=== PATIENT | male | born 1960 | race African-American/Black ===

== ENCOUNTER 2017-04-11 11:44 | Inpatient (IN) | payer OTHER ==
[2017-04-11 13:06] VITALS: BMI 29.1
--- NOTE | 2017-04-11 17:43 | HP ---
COWS - Scale Resting Pulse: 0= [place] 80 or Below Sweatin=Flushed/Facial Moisture Restless Observation: 3= Extraneous Movement Pupil Size: 2= Moderately Dilated Bone or Joint Aches: 2= Severe Diffuse Aches Runny Nose/ Eye Tearin= Runny Nose/Eyes GI Upset > 30mins: 3= Vomiting/Diarrhea Tremor Observation: 2= Slight Tremor Visible Yawning Observation: 2= >3x During Session Anxiety or Irritability: 2=Irritable/Anxious Goose Flesh Skin: 0=Smooth Skin COWS Score: 20 Admission ROS BHS - HPI Chief Complaint: i need help to stop using heroin Allergies/Adverse Reactions: Allergies Allergy/AdvReac Type Severity Reaction Status Date / Time No Known Allergies Allergy Verified 04/11/17 17:37 History of Present Illness: this 56 years old male with heroin dependence,seeking help for detox,last detox [address] [facility] coronary disease,arthritis several admissions in detox relapsing longest priod of sobriety 10 years Exam Limitations: No Limitations - Ebola screening Have you been sick,other than usual withdrawal symptoms: No - Review of Systems Constitutional: Chills, Diaphoresis, Loss of Appetite, Malaise, Night Sweats, Changes in sleep, Weakness EENT: reports: Tearing, Nose Congestion Respiratory: reports: No Symptoms reported Cardiac: reports: Palpitations GI: reports: Diarrhea, Nausea, Vomiting, Abdominal cramping : reports: No Symptoms Reported Musculoskeletal: reports: Back Pain, Joint Pain, Muscle Pain, Neck Pain, Joint Stiffness Integumentary: reports: Dryness Neuro: reports: Headache, Tremors Endocrine: reports: No Symptoms Reported Hematology: reports: No Symptoms Reported Psychiatric: reports: No Sypmtoms Reported, Judgement Intact, Mood/Affect Appropiate, Orientated x3, Anxious, Depressed Patient History - Patient Medical History Hx Anemia: No Hx Asthma: No Hx Chronic Obstructive Pulmonary Disease (COPD): No Hx Cancer: No Hx Cardiac Disorders: No Hx Congestive Heart Failure: No Hx Hypertension: Yes (on med) Hx Hypercholesterolemia: Yes (on med) Hx Pacemaker: No HX Cerebrovascular Accident: No Hx Seizures: No Hx Dementia: No Hx Diabetes: No Hx Gastrointestinal Disorders: No Hx Liver Disease: No Hx Genitourinary Disorders: No Hx Sexually Transmitted Disorders: No Hx Renal Disease (ESRD): No Hx Thyroid Disease: No (last 09/15 negative) Hx Hepatitis C: No Hx Depression: Yes (anxiety) Hx Suicide Attempt: No Hx Bipolar Disorder: No Hx Schizophrenia: No Other Medical History: no suicidal,no homiidal - Patient Surgical History Past Surgical History: No - PPD History Previous Implant?: Yes Documented Results: Negative w/o proof Implanted On Prior [facility] Admission?: No PPD to be Administered?: Yes - Smoking Cessation Smoking history: Current every day smoker Have you smoked in the past 12 months: Yes Aproximately how many cigarettes per day: 2 Hx Chewing Tobacco Use: No Initiated information on smoking cessation: Yes 'Breaking Loose' booklet given: 04/11/17 - Substance & Tx. History Hx Alcohol Use: No Hx Substance Use: No Substance Use Type: Heroin Hx Substance Use Treatment: Yes (2015) - Substances Abused Heroin Route: Injection Frequency: Daily Amount used: 5 bags Age of first use: 17 Date of Last Use: 04/10/17 Family Disease History - Family Disease History Family Disease History: Other: Father (alcohol,), Mother (alcohol, ) Admission Physical Exam [facility] - Vital Signs Vital Signs: Vital Signs - 24 hr 04/11/17 13:03 Temperature 98.2 F Pulse Rate 73 Respiratory 18 Rate Blood Pressure 132/85 - Physical General Appearance: Yes: Moderate Distress, Tremorous, Irritable, Sweating, Anxious HEENTM: Yes: Hearing grossly Normal, Normal ENT Inspection, Normocephalic, [place] , Pharynx Normal Respiratory: Yes: Lungs Clear, Normal Breath Sounds, No Respiratory Distress Neck: Yes: Within Normal Limits, Supple, Trachea in good position Breast: Yes: Within Normal Limits Cardiology: Yes: Within Normal Limits, Regular Rhythm, Regular Rate, S1, S2 Abdominal: Yes: Within Normal Limits, Normal Bowel Sounds, Non Tender, Flat, Soft Genitourinary: Yes: Within Normal Limits Back: Yes: Within Normal Limits, Normal Inspection Musculoskeletal: Yes: full range of Motion, Back pain, Joint Stiffness, Muscle Pain Extremities: Yes: Normal Inspection, Normal Range of Motion, Tremors Neurological: Yes: knife changer II-XII NML intact, Fully Oriented, Alert, Motor Strength 5/5 Integumentary: Yes: Dry Lymphatic: Yes: Within Normal Limits - Diagnostic (1) Opioid dependence with withdrawal Current Visit: Yes Status: Acute (2) Hypertension Current Visit: Yes Status: Acute (3) Coronary artery disease Current Visit: Yes Status: Acute (4) Hypercholesterolemia Current Visit: Yes Status: Acute (5) Arthritis Current Visit: Yes Status: Acute (6) Anxiety and depression Current Visit: Yes Status: Acute (7) Nicotine dependence Current Visit: Yes Status: Acute Cleared for Admission S - Detox or Rehab [facility] Level of Care: Medically Managed Detox Regimen/Protocol: Methadone S Breath Alcohol Content Breath Alcohol Content: 0 Urine Drug Screen - Results Drug Screen Negative: No Urine Drug Screen Results: OPI-Opiates
[2017-04-11] MEDS ORDERED: MENTHOL/PHENOL 1 EACH UD MM PRN (17:54)
[2017-04-11] MEDS ORDERED: hydrOXYzine PAMOATE 50 MG CAPSULE (FP) PO PRN (17:54)
[2017-04-11] MEDS ORDERED: MAGNESIUM HYDROX 2400MG/30ML ORAL SUSPENSION 30 ML CUP PO PRN (17:54)
[2017-04-11] MEDS ORDERED: MAGNESIUM CITRATE 300 ML BOTTLE PO PRN (17:54)
[2017-04-11] MEDS ORDERED: guaiFENesin/D-METHORPHAN HB 10 ML UNIT-DOSE CUPS PO PRN (17:54)
[2017-04-11] MEDS ORDERED: MAG HYDROX/AL HYDROX/SIMETH 30 ML UNIT-DOSE CUP PO PRN (17:54)
[2017-04-11] MEDS ORDERED: P-EPHED 60MG/TRIPROLIDI 2.5MG TABLET PO PRN (17:54)
[2017-04-11] MEDS ORDERED: ACETAMINOPHEN 325 MG TABLET (FP) PO PRN (17:54)
[2017-04-11] MEDS ORDERED: METHADONE HCL 10 MG TABLET (FOR DETOX USE ONLY) PO ONE ×2 (18:30→23:00)
[2017-04-11] MEDS: diazePAM 5 MG TABLET PO PRN (18:52)
[2017-04-11 21:10] LABS: URINE APPEARANCE CLEAR; URINE BILIRUBIN NEGATIVE (NEGATIVE); URINE BLOOD NEGATIVE (NEGATIVE); URINE COLOR DKYELLOW; URINE GLUCOSE (UA) NEGATIVE (NEGATIVE); URINE KETONE 1+ (NEGATIVE); URINE LEUK ESTERASE NEGATIVE (NEGATIVE); URINE NITRITE NEGATIVE (NEGATIVE); URINE UROBILINOGEN NEGATIVE E.U./dl (0.2-1.0)
[2017-04-11 21:15] LABS: URINE PROTEIN 1+ (NEGATIVE)
[2017-04-11 21:19] LABS: URINE HYALINE CAST 2 /lpf; URINE MUCUS MANY; URINE RBC 8 /hpf (0-3); URINE WBC 1 /hpf (3-5)
[2017-04-11] MEDS: THIAMINE HCL 100 MG TABLET (FP) PO SCH (22:32)
[2017-04-11] MEDS: ATORVASTATIN CA 40 MG TABLET (FP) PO SCH (22:32)
[2017-04-11] MEDS: diphenhydrAMINE HCL 50 MG CAPSULE PO PRN (22:33)
[2017-04-12] MEDS: diazePAM 5 MG TABLET PO PRN ×3 (05:34→22:22)
[2017-04-12] MEDS: IBUPROFEN 400 MG TABLET (FP) PO PRN (06:09)
[2017-04-12] MEDS ORDERED: METHADONE HCL 10 MG TABLET (FOR DETOX USE ONLY) PO ONE (10:00)
[2017-04-12 10:06] LABS: MCH 28.2 pg (25.7-33.7); MCHC 32.3 g/dl (32.0-35.9); MEAN CELL VOLUME 87.6 fl (80-96); MEAN PLT VOLUME 7.9 fl (7.5-11.1); PLATELET COUNT 307 K/MM3 (134-434); RDW 13.1 % (11.9-15.9); WHITE BLOOD COUNT 5.4 K/mm3 (4.0-10.0)
[2017-04-12] MEDS: LISINOPRIL 5 MG TABLET (FP) PO SCH (10:24)
[2017-04-12] MEDS: ASPIRIN 81 MG CHEWABLE TABLETS PO SCH (10:24)
[2017-04-12] MEDS: PRENATAL VITAMINS W/ FOLIC ACID TABLET (FP) PO SCH (10:24)
[2017-04-12 10:29] LABS: ALBUMIN 3.9 g/dl (3.4-5.0); ALK PHOS 76 U/L (45-117); ANION GAP 9 (8-16); BILIRUBIN,TOTAL 0.6 mg/dL (0.2-1.0); CALCIUM 9.3 mg/dL (8.5-10.1); CO2 27 mmol/L (21-32); COCKROFT - GAULT 83.18; CREATININE 1.1 mg/dL (0.7-1.3); GLUCOSE,RANDOM 114 mg/dL (74-106); SGOT/AST 26 U/L (15-37); SGPT/ALT 40 U/L (12-78); TOT PROT 7.5 g/dl (6.4-8.2)
--- NOTE | 2017-04-12 10:39 | PN ---
[facility] CIWA - CIWA Score Nausea/Vomitin-No Nausea/No Vomiting Muscle Tremors: 4-Moderate,w/Arms Extend Anxiety: 4-Mod. Anxious/Guarded Agitation: 4-Moderately Restless Paroxysmal Sweats: 1-Minimal Palms Moist Orientation: 0-Oriented Tacttile Disturbances: 3-Moderate Itch/Numb/Burn Auditory Disturbances: 0-None Visual Disturbances: 0-None Headache: 0-None Present CIWA-Ar Total Score: 16 BHS Progress Note (SOAP) Subjective: ANXIETY,SWEATS,JOINT PAIN-HX ARTHRITIS Objective: 04/12/17 10:38 Vital Signs Temperature 98.9 F 04/12/17 09:30 Pulse Rate 90 04/12/17 09:30 Respiratory Rate 20 04/12/17 09:30 Blood Pressure 117/71 04/12/17 09:30 O2 Sat by Pulse Oximetry (%) Laboratory Last Values WBC 5.4 K/mm3 (4.0-10.0) 04/12/17 06:00 RBC 4.62 M/mm3 (4.00-5.60) 04/12/17 06:00 Hgb 13.0 GM/dL (11.7-16.9) 04/12/17 06:00 Hct 40.4 % (35.4-49) 04/12/17 06:00 MCV 87.6 fl (80-96) 04/12/17 06:00 MCHC 32.3 g/dl (32.0-35.9) 04/12/17 06:00 RDW 13.1 % (11.9-15.9) 04/12/17 06:00 Plt Count 307 K/MM3 (134-434) 04/12/17 06:00 MPV 7.9 fl (7.5-11.1) 04/12/17 06:00 Sodium 143 mmol/L (136-145) 04/12/17 06:00 Potassium 4.4 mmol/L (3.5-5.1) 04/12/17 06:00 Chloride 107 mmol/L (98-107) 04/12/17 06:00 Carbon Dioxide 27 mmol/L (21-32) 04/12/17 06:00 Anion Gap 9 (8-16) 04/12/17 06:00 BUN 14 mg/dL (7-18) 04/12/17 06:00 Creatinine 1.1 mg/dL (0.7-1.3) 04/12/17 06:00 Creat Clearance w eGFR > 60 (>60) 04/12/17 06:00 Random Glucose 114 mg/dL (74-106) H 04/12/17 06:00 Calcium 9.3 mg/dL (8.5-10.1) 04/12/17 06:00 Total Bilirubin 0.6 mg/dL (0.2-1.0) 04/12/17 06:00 AST 26 U/L (15-37) 04/12/17 06:00 ALT 40 U/L (12-78) 04/12/17 06:00 Alkaline Phosphatase 76 U/L (45-117) 04/12/17 06:00 Total Protein 7.5 g/dl (6.4-8.2) 04/12/17 06:00 Albumin 3.9 g/dl (3.4-5.0) 04/12/17 06:00 Urine Color Dkyellow 04/11/17 20:45 Urine Appearance Clear 04/11/17 20:45 Urine pH 5.0 (5.0-8.0) 04/11/17 20:45 Ur Specific [place] >= 1.030 (1.005-1.025) H 04/11/17 20:45 Urine Protein 1+ (NEGATIVE) H 04/11/17 20:45 Urine Glucose (UA) Negative (NEGATIVE) 04/11/17 20:45 Urine Ketones 1+ (NEGATIVE) H 04/11/17 20:45 Urine Blood Negative (NEGATIVE) 04/11/17 20:45 Urine Nitrite Negative (NEGATIVE) 04/11/17 20:45 Urine Bilirubin Negative (NEGATIVE) 04/11/17 20:45 Urine Urobilinogen Negative E.U./dl (0.2-1.0) 04/11/17 20:45 Ur Leukocyte Esterase Negative (NEGATIVE) 04/11/17 20:45 Urine RBC 8 /hpf (0-3) 04/11/17 20:45 Urine WBC 1 /hpf (3-5) 04/11/17 20:45 Ur Epithelial Cells Rare /hpf (FEW) 04/11/17 20:45 Hyaline Casts 2 /lpf 04/11/17 20:45 Urine Mucus Many 04/11/17 20:45 Assessment: 04/12/17 10:38 WITHDRAWAL SX Plan: CONTINUE DETOX
--- NOTE | 2017-04-12 10:59 | EKG ---
Test Reason : Blood Pressure : / mmHG Vent. Rate : 099 BPM Atrial Rate : 099 BPM P-R Int : 154 ms QRS Dur : 066 ms QT Int : 354 ms P-R-T Axes : 062 049 247 degrees QTc Int : 454 ms NORMAL SINUS RHYTHM POSSIBLE LEFT ATRIAL ENLARGEMENT LEFT VENTRICULAR HYPERTROPHY MARKED ST ABNORMALITY, POSSIBLE INFERIOR SUBENDOCARDIAL INJURY ABNORMAL ECG NO PREVIOUS ECGS AVAILABLE Confirmed by HAILEE DICKSON MD ([id number]) on 04/12/2017 10:58:57 AM Referred By: Confirmed By:HAILEE DICKSON MD
[2017-04-12 12:40] LABS: SICKLE CELL SCREEN NEGATIVE (NEGATIVE)
--- NOTE | 2017-04-12 13:10 | CONSULT ---
[facility] Psychiatric Consult - Data Date of interview: 04/12/17 Admission source: [facility] Identifying data: First admission to [facility] for this 56 y/o AA male seeking detox treatment for heroin dependence.Patient is single (common-law),a father of two,homeless,unemployed and supported on SSI benefits. Substance Abuse History: - Smoking Cessation. Smoking history: Current every day smoker. Have you smoked in the past 12 months: Yes. Aproximately how many cigarettes per day: 2. Hx Chewing Tobacco Use: No. Initiated information on smoking cessation: Yes. 'Breaking Loose' booklet given: 04/11/17. - Substance & Tx. History. Hx Alcohol Use: No. Hx Substance Use: No. Substance Use Type: Heroin. Hx Substance Use Treatment: Yes (2015). - Substances Abused. Heroin. Route: Injection. Frequency: Daily. Amount used: 5 bags. Age of first use: 17. Date of Last Use: 04/10/17. Confirmed by patient. Medical History: Hypertension,hypercholesterolemia and arthritis. Psychiatric History: No reported history of psychiatric hospitalizations.Diagnosed with MDD and followed in OPD setting in [facility] at the [facility] (self-report).Mr Chery denies history of suicide attempts.He requests trazodone to address chronic insomnia. Physical/Sexual Abuse/Trauma History: Patient denies. Additional Comment: Urine Drug Screen Results: OPI-Opiates.Noted. Mental Status Exam - Mental Status Exam Alert and Oriented to: Time, Place Cognitive Function: Good Patient Appearance: Well Groomed Mood: Hopeful, Euthymic Affect: Appropriate, Normal Range Patient Behavior: Fatigued, Appropriate, Cooperative Speech Pattern: Clear, Appropriate Voice Loudness: Normal Thought Process: Goal Oriented Thought Disorder: Not Present Hallucinations: Denies Suicidal Ideation: Denies Homicidal Ideation: Denies Insight/Judgement: Poor Sleep: Poorly, Difficulty falling asleep Appetite: Good Muscle strength/Tone: Normal Gait/Station: Normal Psychiatric Findings - Problem List ([place] 1, 2,3) (1) Opioid dependence with withdrawal Current Visit: Yes Status: Acute (2) Substance induced mood disorder Current Visit: Yes Status: Acute (3) Benzodiazepine dependence Current Visit: Yes Status: Acute (4) Nicotine dependence Current Visit: Yes Status: Acute (5) Arthritis Current Visit: Yes Status: Chronic (6) Coronary artery disease Current Visit: Yes Status: Chronic (7) Hypercholesterolemia Current Visit: Yes Status: Chronic (8) Hypertension Current Visit: Yes Status: Chronic (9) Insomnia Current Visit: Yes Status: Acute - Initial Treatment Plan Initial Treatment Plan: Psychoeducation.Detoxification.Trazodone 50 mg po hs.Ordered at patient's request.Side effects/benefits discussed with the patient.Made aware of risk for priapism.Patient agrees with this plan.Observation.
[2017-04-12] MEDS: ATORVASTATIN CA 40 MG TABLET (FP) PO SCH (22:21)
[2017-04-12] MEDS: traZODone HCL 50 MG TABLET (FP) PO SCH (22:21)
[2017-04-12] MEDS: THIAMINE HCL 100 MG TABLET (FP) PO SCH (22:21)
[2017-04-13] MEDS: IBUPROFEN 400 MG TABLET (FP) PO PRN (06:06)
[2017-04-13] MEDS: diazePAM 5 MG TABLET PO PRN ×4 (06:07→22:25)
[2017-04-13] MEDS ORDERED: METHADONE HCL 5 MG TABLET (FOR DETOX USE ONLY) PO ONE (10:00)
[2017-04-13] MEDS: PRENATAL VITAMINS W/ FOLIC ACID TABLET (FP) PO SCH (10:15)
[2017-04-13] MEDS: LISINOPRIL 5 MG TABLET (FP) PO SCH (10:15)
[2017-04-13] MEDS: ASPIRIN 81 MG CHEWABLE TABLETS PO SCH (10:15)
--- NOTE | 2017-04-13 11:01 | PN ---
[facility] CIWA - CIWA Score Nausea/Vomitin-No Nausea/No Vomiting Muscle Tremors: 4-Moderate,w/Arms Extend Anxiety: 4-Mod. Anxious/Guarded Agitation: 4-Moderately Restless Paroxysmal Sweats: 1-Minimal Palms Moist Orientation: 0-Oriented Tacttile Disturbances: 3-Moderate Itch/Numb/Burn Auditory Disturbances: 0-None Visual Disturbances: 0-None Headache: 0-None Present CIWA-Ar Total Score: 16 BHS Progress Note (SOAP) Subjective: ANXIETY,SWEATS,RIGHT LEG AND HIP PAIN. Objective: 04/13/17 11:00 Vital Signs Temperature 98.2 F 04/13/17 09:22 Pulse Rate 74 04/13/17 09:22 Respiratory Rate 18 04/13/17 09:22 Blood Pressure 131/85 04/13/17 09:22 O2 Sat by Pulse Oximetry (%) Laboratory Last Values WBC 5.4 K/mm3 (4.0-10.0) 04/12/17 06:00 RBC 4.62 M/mm3 (4.00-5.60) 04/12/17 06:00 Hgb 13.0 GM/dL (11.7-16.9) 04/12/17 06:00 Hct 40.4 % (35.4-49) 04/12/17 06:00 MCV 87.6 fl (80-96) 04/12/17 06:00 MCHC 32.3 g/dl (32.0-35.9) 04/12/17 06:00 RDW 13.1 % (11.9-15.9) 04/12/17 06:00 Plt Count 307 K/MM3 (134-434) 04/12/17 06:00 MPV 7.9 fl (7.5-11.1) 04/12/17 06:00 Sickle Cell Screen Negative (NEGATIVE) 04/12/17 06:00 Sodium 143 mmol/L (136-145) 04/12/17 06:00 Potassium 4.4 mmol/L (3.5-5.1) 04/12/17 06:00 Chloride 107 mmol/L (98-107) 04/12/17 06:00 Carbon Dioxide 27 mmol/L (21-32) 04/12/17 06:00 Anion Gap 9 (8-16) 04/12/17 06:00 BUN 14 mg/dL (7-18) 04/12/17 06:00 Creatinine 1.1 mg/dL (0.7-1.3) 04/12/17 06:00 Creat Clearance w eGFR > 60 (>60) 04/12/17 06:00 Random Glucose 114 mg/dL (74-106) H 04/12/17 06:00 Calcium 9.3 mg/dL (8.5-10.1) 04/12/17 06:00 Total Bilirubin 0.6 mg/dL (0.2-1.0) 04/12/17 06:00 AST 26 U/L (15-37) 04/12/17 06:00 ALT 40 U/L (12-78) 04/12/17 06:00 Alkaline Phosphatase 76 U/L (45-117) 04/12/17 06:00 Total Protein 7.5 g/dl (6.4-8.2) 04/12/17 06:00 Albumin 3.9 g/dl (3.4-5.0) 04/12/17 06:00 Urine Color Dkyellow 04/11/17 20:45 Urine Appearance Clear 04/11/17 20:45 Urine pH 5.0 (5.0-8.0) 04/11/17 20:45 Ur Specific [place] >= 1.030 (1.005-1.025) H 04/11/17 20:45 Urine Protein 1+ (NEGATIVE) H 04/11/17 20:45 Urine Glucose (UA) Negative (NEGATIVE) 04/11/17 20:45 Urine Ketones 1+ (NEGATIVE) H 04/11/17 20:45 Urine Blood Negative (NEGATIVE) 04/11/17 20:45 Urine Nitrite Negative (NEGATIVE) 04/11/17 20:45 Urine Bilirubin Negative (NEGATIVE) 04/11/17 20:45 Urine Urobilinogen Negative E.U./dl (0.2-1.0) 04/11/17 20:45 Ur Leukocyte Esterase Negative (NEGATIVE) 04/11/17 20:45 Urine RBC 8 /hpf (0-3) 04/11/17 20:45 Urine WBC 1 /hpf (3-5) 04/11/17 20:45 Ur Epithelial Cells Rare /hpf (FEW) 04/11/17 20:45 Hyaline Casts 2 /lpf 04/11/17 20:45 Urine Mucus Many 04/11/17 20:45 RPR Titer Nonreactive (NONREACTIVE) 04/12/17 06:00 Assessment: 04/13/17 11:00 WITHDRAWAL SX Plan: CONTINUE DETOX MOTRIN DIRECTED
[2017-04-13] MEDS: ATORVASTATIN CA 40 MG TABLET (FP) PO SCH (22:25)
[2017-04-13] MEDS: traZODone HCL 50 MG TABLET (FP) PO SCH (22:25)
[2017-04-13] MEDS: THIAMINE HCL 100 MG TABLET (FP) PO SCH (22:25)
[2017-04-14] MEDS: IBUPROFEN 400 MG TABLET (FP) PO PRN (05:58)
[2017-04-14] MEDS: diazePAM 5 MG TABLET PO PRN ×3 (05:59→16:54)
[2017-04-14] MEDS ORDERED: METHADONE HCL 5 MG TABLET (FOR DETOX USE ONLY) PO ONE (10:00)
[2017-04-14] MEDS: ASPIRIN 81 MG CHEWABLE TABLETS PO SCH (10:30)
[2017-04-14] MEDS: PRENATAL VITAMINS W/ FOLIC ACID TABLET (FP) PO SCH (10:30)
[2017-04-14] MEDS: LISINOPRIL 5 MG TABLET (FP) PO SCH (10:31)
--- NOTE | 2017-04-14 12:12 | PN ---
S Progress Note (SOAP) Subjective: DECREASED ANXIETY,SWEATS,TREMORS. CHRONIC BACK AND LEFT LEG PAIN. Objective: 04/14/17 12:12 Vital Signs Temperature 97.1 F L 04/14/17 09:17 Pulse Rate 82 04/14/17 09:17 Respiratory Rate 18 04/14/17 09:17 Blood Pressure 116/72 04/14/17 09:17 O2 Sat by Pulse Oximetry (%) Laboratory Last Values WBC 5.4 K/mm3 (4.0-10.0) 04/12/17 06:00 RBC 4.62 M/mm3 (4.00-5.60) 04/12/17 06:00 Hgb 13.0 GM/dL (11.7-16.9) 04/12/17 06:00 Hct 40.4 % (35.4-49) 04/12/17 06:00 MCV 87.6 fl (80-96) 04/12/17 06:00 MCHC 32.3 g/dl (32.0-35.9) 04/12/17 06:00 RDW 13.1 % (11.9-15.9) 04/12/17 06:00 Plt Count 307 K/MM3 (134-434) 04/12/17 06:00 MPV 7.9 fl (7.5-11.1) 04/12/17 06:00 Sickle Cell Screen Negative (NEGATIVE) 04/12/17 06:00 Sodium 143 mmol/L (136-145) 04/12/17 06:00 Potassium 4.4 mmol/L (3.5-5.1) 04/12/17 06:00 Chloride 107 mmol/L (98-107) 04/12/17 06:00 Carbon Dioxide 27 mmol/L (21-32) 04/12/17 06:00 Anion Gap 9 (8-16) 04/12/17 06:00 BUN 14 mg/dL (7-18) 04/12/17 06:00 Creatinine 1.1 mg/dL (0.7-1.3) 04/12/17 06:00 Creat Clearance w eGFR > 60 (>60) 04/12/17 06:00 Random Glucose 114 mg/dL (74-106) H 04/12/17 06:00 Calcium 9.3 mg/dL (8.5-10.1) 04/12/17 06:00 Total Bilirubin 0.6 mg/dL (0.2-1.0) 04/12/17 06:00 AST 26 U/L (15-37) 04/12/17 06:00 ALT 40 U/L (12-78) 04/12/17 06:00 Alkaline Phosphatase 76 U/L (45-117) 04/12/17 06:00 Total Protein 7.5 g/dl (6.4-8.2) 04/12/17 06:00 Albumin 3.9 g/dl (3.4-5.0) 04/12/17 06:00 Urine Color Dkyellow 04/11/17 20:45 Urine Appearance Clear 04/11/17 20:45 Urine pH 5.0 (5.0-8.0) 04/11/17 20:45 Ur Specific [place] >= 1.030 (1.005-1.025) H 04/11/17 20:45 Urine Protein 1+ (NEGATIVE) H 04/11/17 20:45 Urine Glucose (UA) Negative (NEGATIVE) 04/11/17 20:45 Urine Ketones 1+ (NEGATIVE) H 04/11/17 20:45 Urine Blood Negative (NEGATIVE) 04/11/17 20:45 Urine Nitrite Negative (NEGATIVE) 04/11/17 20:45 Urine Bilirubin Negative (NEGATIVE) 04/11/17 20:45 Urine Urobilinogen Negative E.U./dl (0.2-1.0) 04/11/17 20:45 Ur Leukocyte Esterase Negative (NEGATIVE) 04/11/17 20:45 Urine RBC 8 /hpf (0-3) 04/11/17 20:45 Urine WBC 1 /hpf (3-5) 04/11/17 20:45 Ur Epithelial Cells Rare /hpf (FEW) 04/11/17 20:45 Hyaline Casts 2 /lpf 04/11/17 20:45 Urine Mucus Many 04/11/17 20:45 RPR Titer Nonreactive (NONREACTIVE) 04/12/17 06:00 Assessment: 04/14/17 12:12 WITHDRAWAL SX Plan: CONTINUE DETOX
[2017-04-14] MEDS: THIAMINE HCL 100 MG TABLET (FP) PO SCH (22:19)
[2017-04-14] MEDS: traZODone HCL 50 MG TABLET (FP) PO SCH (22:19)
[2017-04-14] MEDS: ATORVASTATIN CA 40 MG TABLET (FP) PO SCH (22:19)
[2017-04-15] MEDS: IBUPROFEN 400 MG TABLET (FP) PO PRN (05:47)
[2017-04-15] MEDS: LOPERAMIDE HCL 2 MG CAPSULE PO PRN (05:47)
[2017-04-15] MEDS ORDERED: METHADONE HCL 10 MG TABLET (FOR DETOX USE ONLY) PO ONE (10:00)
[2017-04-15] MEDS: PRENATAL VITAMINS W/ FOLIC ACID TABLET (FP) PO SCH (10:31)
[2017-04-15] MEDS: ASPIRIN 81 MG CHEWABLE TABLETS PO SCH (10:31)
[2017-04-15] MEDS: LISINOPRIL 5 MG TABLET (FP) PO SCH (10:31)
--- NOTE | 2017-04-15 10:56 | PN ---
BHS Progress Note (SOAP) Subjective: RESTING IN BED AT ROUNDS WITH DECREASED ANXIETY, TREMORS. Objective: 04/15/17 10:56 Vital Signs Temperature 97.1 F L 04/15/17 09:56 Pulse Rate 75 04/15/17 09:56 Respiratory Rate 20 04/15/17 09:56 Blood Pressure 116/86 04/15/17 09:56 O2 Sat by Pulse Oximetry (%) Assessment: 04/15/17 10:56 DECREASED WITHDRAWAL SX Plan: CONTINUE DETOX
[2017-04-15] MEDS: ATORVASTATIN CA 40 MG TABLET (FP) PO SCH (21:11)
[2017-04-15] MEDS: diphenhydrAMINE HCL 50 MG CAPSULE PO PRN (21:11)
[2017-04-15] MEDS: traZODone HCL 50 MG TABLET (FP) PO SCH (21:11)
[2017-04-15] MEDS: THIAMINE HCL 100 MG TABLET (FP) PO SCH (21:13)
[2017-04-16] MEDS: LOPERAMIDE HCL 2 MG CAPSULE PO PRN ×2 (01:36→10:53)
[2017-04-16] MEDS ORDERED: METHADONE HCL 5 MG TABLET (FOR DETOX USE ONLY) PO ONE (06:00)
[2017-04-16] MEDS: IBUPROFEN 400 MG TABLET (FP) PO PRN (06:14)
[2017-04-16] MEDS: PRENATAL VITAMINS W/ FOLIC ACID TABLET (FP) PO SCH (10:21)
[2017-04-16] MEDS: ASPIRIN 81 MG CHEWABLE TABLETS PO SCH (10:21)
[2017-04-16] MEDS: LISINOPRIL 5 MG TABLET (FP) PO SCH (10:25)
[2017-04-16 10:27] VITALS: BP 121/74; PULSE 87; TEMP 97.6
--- NOTE | 2017-04-16 15:22 | DS ---
[facility] Detox Discharge Summary Admission Date: 04/11/17 Discharge Date: 04/16/17 - History Present History: Alcohol Dependence, Sedative Dependence Additional Comments: ADVISED PATIENT TO FOLLOW-UP WITH QUALITY DIRECTOR AFTER DISCHARGE FROM DETOX FOR GENERAL MEDICAL ASSESSMENT. Pertinent Past History: Hypercholesterolemia, HTN, Depression, Arthritis, CAD. - Physical Exam Results Vital Signs: Vital Signs Temperature 97.6 F 04/16/17 10:26 Pulse Rate 87 04/16/17 10:26 Respiratory Rate 18 04/16/17 10:26 Blood Pressure 121/74 04/16/17 10:26 O2 Sat by Pulse Oximetry (%) Pertinent Admission Physical Exam Findings: WITHDRAWAL SYMPTOMS. Laboratory Tests 04/11/17 04/12/17 04/12/17 20:45 06:00 06:00 WBC 5.4 RBC 4.62 Hgb 13.0 Hct 40.4 MCV 87.6 MCHC 32.3 RDW 13.1 Plt Count 307 MPV 7.9 Sickle Cell Screen Negative Sodium 143 Potassium 4.4 Chloride 107 Carbon Dioxide 27 Anion Gap 9 BUN 14 Creatinine 1.1 Creat Clearance w eGFR > 60 Random Glucose 114 H Calcium 9.3 Total Bilirubin 0.6 AST 26 ALT 40 Alkaline Phosphatase 76 Total Protein 7.5 Albumin 3.9 Urine Color Dkyellow Urine Appearance Clear Urine pH 5.0 Ur Specific [place] >= 1.030 H Urine Protein 1+ H Urine Glucose (UA) Negative Urine Ketones 1+ H Urine Blood Negative Urine Nitrite Negative Urine Bilirubin Negative Urine Urobilinogen Negative Ur Leukocyte Esterase Negative Urine RBC 8 Urine WBC 1 Ur Epithelial Cells Rare Hyaline Casts 2 Urine Mucus Many RPR Titer 04/12/17 06:00 WBC RBC Hgb Hct MCV MCHC RDW Plt Count MPV Sickle Cell Screen Sodium Potassium Chloride Carbon Dioxide Anion Gap BUN Creatinine Creat Clearance w eGFR Random Glucose Calcium Total Bilirubin AST ALT Alkaline Phosphatase Total Protein Albumin Urine Color Urine Appearance Urine pH Ur Specific [place] Urine Protein Urine Glucose (UA) Urine Ketones Urine Blood Urine Nitrite Urine Bilirubin Urine Urobilinogen Ur Leukocyte Esterase Urine RBC Urine WBC Ur Epithelial Cells Hyaline Casts Urine Mucus RPR Titer Nonreactive LABS NOTED. - Treatment Hospital Course: Detox Protocol Followed, Detoxed Safely, Responded well, Discharged Condition Good Patient has Accepted a Rehab Referral to: PATIENT GOING HOME AT THIS TIME. WILL PURSUE REHAB ADMISSION AT LATER DATE. - Medication Discharge Medications: Ambulatory Orders Aspirin [ASA -] 81 mg PO DAILY 04/11/17 Atorvastatin Ca [Lipitor] 80 mg PO HS 04/11/17 Ibuprofen [Motrin -] 400 mg PO Q4H PRN 04/11/17 Lisinopril 5 mg PO DAILY 04/11/17 Trazodone HCl [Desyrel -] 50 mg PO HS #30 tablet 04/12/17 - Diagnosis (1) Anxiety and depression Status: Chronic (2) Insomnia Status: Acute Qualifiers: Insomnia type: unspecified Qualified Code(s): G47.00 - Insomnia, unspecified (3) Nicotine dependence Status: Chronic Qualifiers: Nicotine product type: cigarettes Substance use status: uncomplicated Qualified Code(s): F17.210 - Nicotine dependence, cigarettes, uncomplicated (4) Opioid dependence with withdrawal Status: Acute (5) Substance induced mood disorder Status: Acute (6) Arthritis Status: Chronic (7) Coronary artery disease Status: Chronic Qualifiers: Coronary Disease-Associated Artery/Lesion type: unspecified vessel or lesion type [place] vs. transplanted heart: unspecified whether [place] or transplanted heart Associated angina: angina presence unspecified Qualified Code(s): I25.10 - Atherosclerotic heart disease of [place] coronary artery without angina pectoris (8) Hypercholesterolemia Status: Chronic (9) Hypertension Status: Chronic Qualifiers: Hypertension type: essential hypertension Qualified Code(s): I10 - Essential (primary) hypertension (10) Benzodiazepine dependence Status: Acute - AMA Did Patient Leave Against Medical Advice: No
== END 2017-04-16 10:53 | disposition home or self-care (01) | DRG 773 ==
LOC: YASAS 11:44 → Y3N 18:04
PROVIDERS: ADMIT Internal Medicine; ATTEND Internal Medicine
PROC: HZ2ZZZZ Detoxification Services for Substance Abuse Treatment (ICD-10-PCS; principal; 2017-04-11)
DX: F11.23 Opioid dependence with withdrawal (principal); F13.20 Sedative, hypnotic or anxiolytic dependence, uncomplicated; F17.210 Nicotine dependence, cigarettes, uncomplicated; F41.8 Other specified anxiety disorders; F19.24 Other psychoactive substance dependence with psychoactive substance-induced mood disorder; G47.00 Insomnia, unspecified; M19.90 Unspecified osteoarthritis, unspecified site; I25.10 Atherosclerotic heart disease of native coronary artery without angina pectoris; I10 Essential (primary) hypertension; E78.00 Pure hypercholesterolemia, unspecified; Z59.0 Homelessness
CPT/HCPCS: 36415; 80053; 81003; 81015; 85027; 85660; 86593; 93005; 93010

== ENCOUNTER 2017-06-14 13:54 | Inpatient (IN) | payer OTHER ==
[2017-06-14 15:18] VITALS: BMI 27.3
--- NOTE | 2017-06-14 16:18 | HP ---
COWS - Scale Resting Pulse: 0= [place] 80 or Below Sweatin=Flushed/Facial Moisture Restless Observation: 3= Extraneous Movement Pupil Size: 2= Moderately Dilated Bone or Joint Aches: 2= Severe Diffuse Aches Runny Nose/ Eye Tearin= Runny Nose/Eyes GI Upset > 30mins: 3= Vomiting/Diarrhea Tremor Observation: 2= Slight Tremor Visible Yawning Observation: 2= >3x During Session Anxiety or Irritability: 2=Irritable/Anxious Goose Flesh Skin: 0=Smooth Skin COWS Score: 20 Admission ROS S - HPI Chief Complaint: i am here for detox from heroin Allergies/Adverse Reactions: Allergies Allergy/AdvReac Type Severity Reaction Status Date / Time No Known Allergies Allergy Verified 06/14/17 15:59 History of Present Illness: this 56 years old male with heroin dependence,seeking detox,last treatment [facility] 04/16 multiple medical problem old [place] in 03/16,hypercholesterolemia,hypertension,low back pain herniated disc longest period of sobriety 2 years Exam Limitations: No Limitations - Ebola screening Have you traveled outside of the country in the last 21 days: No Have you had contact with anyone from an Ebola affected area: No Have you been sick,other than usual withdrawal symptoms: No Do you have a fever: No - Review of Systems Constitutional: Chills, Diaphoresis, Loss of Appetite, Malaise, Night Sweats, Changes in sleep, Weakness, Unintentional Wgt. Loss EENT: reports: Tearing, Nose Congestion Respiratory: reports: No Symptoms reported Cardiac: reports: No Symptoms Reported GI: reports: Diarrhea, Nausea, Vomiting, Abdominal cramping : reports: No Symptoms Reported Musculoskeletal: reports: Back Pain, Joint Pain, Muscle Pain Integumentary: reports: Dryness Neuro: reports: Headache, Tremors Endocrine: reports: No Symptoms Reported Hematology: reports: No Symptoms Reported Psychiatric: reports: Depressed Patient History - Patient Medical History Hx Anemia: No Hx Asthma: No Hx Chronic Obstructive Pulmonary Disease (COPD): No Hx Cancer: No Hx Cardiac Disorders: Yes (old mi in 03/16) Hx Congestive Heart Failure: No Hx Hypertension: Yes (0n med) Hx Hypercholesterolemia: Yes (on med) Hx Pacemaker: No HX Cerebrovascular Accident: No Hx Seizures: No Hx Dementia: No Hx Diabetes: No Hx Gastrointestinal Disorders: No Hx Liver Disease: No Hx Genitourinary Disorders: No Hx Sexually Transmitted Disorders: No Hx Renal Disease (ESRD): No Hx Thyroid Disease: No Hx Human Immunodeficiency Virus (HIV): No (last tested 12/17) Hx Hepatitis C: No Hx Depression: Yes Hx Suicide Attempt: No Hx Bipolar Disorder: No Hx Schizophrenia: No Other Medical History: no suicidal,no homicidal - Patient Surgical History Past Surgical History: No - PPD History Previous Implant?: Yes Documented Results: Negative w/proof Implanted On Prior [facility] Admission?: Yes Date: 04/13/17 Results: 0 MM PPD to be Administered?: No - Smoking Cessation Smoking history: Current every day smoker Have you smoked in the past 12 months: Yes Aproximately how many cigarettes per day: 3 Hx Chewing Tobacco Use: No Initiated information on smoking cessation: Yes 'Breaking Loose' booklet given: 06/14/17 - Substance & Tx. History Hx Alcohol Use: No Hx Substance Use: Yes Substance Use Type: Heroin Hx Substance Use Treatment: Yes (last [facility] 04/16) - Substances Abused Heroin Route: Inhalation Frequency: Daily Amount used: 3 BAGS Age of first use: 26 Date of Last Use: 06/13/17 Family Disease History - Family Disease History Family Disease History: Other: Father (alcohol,), Mother (alcohol, ) Admission Physical Exam S - Vital Signs Vital Signs: Vital Signs - 24 hr 06/14/17 15:16 Temperature 98.0 F Pulse Rate 61 Respiratory 18 Rate Blood Pressure 148/86 - Physical General Appearance: Yes: Moderate Distress, Tremorous, Irritable, Sweating, Anxious HEENTM: Yes: Normal ENT Inspection, [place], Pharynx Normal Respiratory: Yes: Lungs Clear, Normal Breath Sounds, No Respiratory Distress Neck: Yes: Within Normal Limits, No masses,lesions,Nodules, Supple Breast: Yes: Within Normal Limits Cardiology: Yes: Within Normal Limits, Regular Rhythm, Regular Rate, S1, S2 Abdominal: Yes: Within Normal Limits, Normal Bowel Sounds, Non Tender, Flat, Soft Genitourinary: Yes: Within Normal Limits Back: Yes: Muscle Spasm Musculoskeletal: Yes: full range of Motion, Back pain, Muscle Pain Extremities: Yes: Tremors Neurological: Yes: director learning 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 transplanted heart: unspecified whether [place] or transplanted heart Associated angina: angina presence unspecified Qualified Code(s): I25.10 - Atherosclerotic heart disease of [place] coronary artery without angina pectoris (4) Hypercholesterolemia Current Visit: No Status: Chronic (5) Hypertension Current Visit: No Status: Chronic Qualifiers: Hypertension type: essential hypertension Qualified Code(s): I10 - Essential (primary) hypertension (6) Nicotine dependence Current Visit: No Status: Chronic Qualifiers: Nicotine product type: cigarettes Substance use status: uncomplicated Qualified Code(s): F17.210 - Nicotine dependence, cigarettes, uncomplicated (7) [place] (myocardial infarction) Current Visit: Yes Status: Acute (8) Low back pain Current Visit: Yes Status: Acute (9) Herniated disc Current Visit: Yes Status: Acute Cleared for Admission [facility] - Detox or Rehab [facility] Level of Care: Medically Managed Detox Regimen/Protocol: Methadone [facility] Breath Alcohol Content Breath Alcohol Content: 0 Urine Drug Screen - Results Drug Screen Negative: No Urine Drug Screen Results: OPI-Opiates
[2017-06-14] MEDS ORDERED: MAGNESIUM CITRATE 300 ML BOTTLE PO PRN (16:27)
[2017-06-14] MEDS ORDERED: hydrOXYzine PAMOATE 25 MG CAPSULE (FP) PO PRN (16:27)
[2017-06-14] MEDS ORDERED: ACETAMINOPHEN 325 MG TABLET (FP) PO PRN (16:27)
[2017-06-14] MEDS ORDERED: guaiFENesin/D-METHORPHAN HB 10 ML UNIT-DOSE CUPS PO PRN (16:27)
[2017-06-14] MEDS ORDERED: P-EPHED 60MG/TRIPROLIDI 2.5MG TABLET PO PRN (16:27)
[2017-06-14] MEDS ORDERED: LOPERAMIDE HCL 2 MG CAPSULE PO PRN (16:27)
[2017-06-14] MEDS ORDERED: MAGNESIUM HYDROX 2400MG/30ML ORAL SUSPENSION 30 ML CUP PO PRN (16:27)
[2017-06-14] MEDS ORDERED: MENTHOL/PHENOL 1 EACH UD MM PRN (16:27)
[2017-06-14] MEDS ORDERED: MAG HYDROX/AL HYDROX/SIMETH 30 ML UNIT-DOSE CUP PO PRN (16:27)
[2017-06-14] MEDS ORDERED: METHADONE HCL 10 MG TABLET (FOR DETOX USE ONLY) PO ONE ×2 (17:30→23:00)
[2017-06-14] MEDS: diazePAM 5 MG TABLET PO PRN ×2 (18:55→22:24)
[2017-06-14] MEDS: ATORVASTATIN CA 40 MG TABLET (FP) PO SCH (22:24)
[2017-06-14] MEDS: THIAMINE HCL 100 MG TABLET (FP) PO SCH (22:24)
[2017-06-14] MEDS: diphenhydrAMINE HCL 50 MG CAPSULE PO PRN (22:24)
[2017-06-14 23:17] LABS: URINE APPEARANCE SLCLOUDY; URINE BILIRUBIN NEGATIVE (NEGATIVE); URINE BLOOD 1+ (NEGATIVE); URINE COLOR YELLOW; URINE GLUCOSE (UA) NEGATIVE (NEGATIVE); URINE KETONE NEGATIVE (NEGATIVE); URINE LEUK ESTERASE NEGATIVE (NEGATIVE); URINE NITRITE NEGATIVE (NEGATIVE); URINE UROBILINOGEN NEGATIVE mg/dL (0.2-1.0)
[2017-06-14 23:28] LABS: URINE PROTEIN 1+ (NEGATIVE)
[2017-06-14 23:57] LABS: CALCIUM OXALATE CRYSTALS FEW /hpf (NONE SEEN); URINE BACTERIA FEW /hpf (NONE SEEN); URINE MUCUS FEW; URINE RBC 9 /hpf (0-3); URINE WBC 2 /hpf (3-5)
[2017-06-15] MEDS: diazePAM 5 MG TABLET PO PRN ×3 (05:35→22:28)
[2017-06-15] MEDS ORDERED: METHADONE HCL 10 MG TABLET (FOR DETOX USE ONLY) PO ONE (10:00)
[2017-06-15] MEDS: ASPIRIN 81 MG CHEWABLE TABLETS PO SCH (10:25)
[2017-06-15] MEDS: PRENATAL VITAMINS W/ FOLIC ACID TABLET (FP) PO SCH (10:25)
[2017-06-15] MEDS: LISINOPRIL 5 MG TABLET (FP) PO SCH (10:25)
[2017-06-15 10:34] LABS: ALBUMIN 3.6 g/dl (3.4-5.0)
[2017-06-15 10:37] LABS: MCH 27.5 pg (25.7-33.7); MCHC 31.3 g/dl (32.0-35.9); MEAN CELL VOLUME 87.7 fl (80-96); MEAN PLT VOLUME 7.5 fl (7.5-11.1); PLATELET COUNT 339 K/MM3 (134-434); RDW 13.1 % (11.9-15.9); WHITE BLOOD COUNT 5.9 K/mm3 (4.0-10.0)
[2017-06-15 10:38] LABS: ALK PHOS 72 U/L (45-117); BILIRUBIN,TOTAL 0.7 mg/dL (0.2-1.0); CO2 30 mmol/L (21-32); GLUCOSE,RANDOM 126 mg/dL (74-106); SGOT/AST 15 U/L (15-37); SGPT/ALT 24 U/L (12-78); TOT PROT 7.1 g/dl (6.4-8.2)
--- NOTE | 2017-06-15 10:44 | CONSULT ---
[facility] Psychiatric Consult - Data Date of interview: 06/15/17 Admission source: [facility] Identifying data: Readmission to [facility] for this 56 y/o AA male seeking detox treatment [address] for heroin dependence.Patient is single (common-law), a father of two,homeless,unemployed and supported on SSI benefits. Substance Abuse History: Discussed with patient in this interview.Mr Chery confirms this [facility] report. Smoking Cessation. Smoking history: Current every day smoker. Have you smoked in the past 12 months: Yes. Aproximately how many cigarettes per day: 3. Hx Chewing Tobacco Use: No. Initiated information on smoking cessation: Yes. 'Breaking Loose' booklet given: 06/14/17. - Substance & Tx. History. Hx Alcohol Use: No. Hx Substance Use: Yes. Substance Use Type : Heroin. Hx Substance Use Treatment: Yes (last [facility] 04/16). - Substances Abused. Heroin. Route: Inhalation. Frequency: Daily. Amount used: 3 BAGS. Age of first use: 26. Date of Last Use: 06/13/17 Medical History: Significant for a history of myocardial infarction,coronary artery disease,hypertension,hypercholesterolemia,herniated disk,lower back pain and arthritis. Psychiatric History: Patient denies history of psychiatric hospitalizations.Mr Chery sees his primary care physician for medications refills (trazodone 50 mg/hs for insomnia).Mr Chery denies history of suicide attempts. Physical/Sexual Abuse/Trauma History: Patient denies. Additional Comment: Urine Drug Screen Results: OPI-Opiates.Noted. Mental Status Exam - Mental Status Exam Alert and Oriented to: Time, Place, Person Cognitive Function: Good Patient Appearance: Well Groomed Mood: Hopeful, Euthymic Affect: Appropriate, Normal Range Patient Behavior: Fatigued, Appropriate, Cooperative Speech Pattern: Clear Voice Loudness: Normal Thought Process: Intact, Goal Oriented Thought Disorder: Not Present Hallucinations: Denies Suicidal Ideation: Denies Homicidal Ideation: Denies Insight/Judgement: Poor Sleep: Poorly, Difficulty falling asleep Appetite: Good Muscle strength/Tone: Normal Gait/Station: Other (walks with a stooped posture) Psychiatric Findings - Problem List ([place] 1, 2,3) (1) Opioid dependence with withdrawal Current Visit: Yes Status: Acute (2) Nicotine dependence Current Visit: Yes Status: Acute Qualifiers: Nicotine product type: cigarettes Substance use status: uncomplicated Qualified Code(s): F17.210 - Nicotine dependence, cigarettes, uncomplicated (3) Substance induced mood disorder Current Visit: Yes Status: Acute (4) Herniated disc Current Visit: Yes Status: Chronic (5) Low back pain Current Visit: Yes Status: Chronic (6) Old [place] (myocardial infarction) Current Visit: Yes Status: Chronic (7) Arthritis Current Visit: Yes Status: Chronic (8) Hypercholesterolemia Current Visit: Yes Status: Chronic (9) Hypertension Current Visit: Yes Status: Chronic Qualifiers: Hypertension type: essential hypertension Qualified Code(s): I10 - Essential (primary) hypertension (10) Coronary artery disease Current Visit: No Status: Chronic Qualifiers: Coronary Disease-Associated Artery/Lesion type: unspecified vessel or lesion type [place] vs. transplanted heart: unspecified whether [place] or transplanted heart Associated angina: angina presence unspecified Qualified Code(s): I25.10 - Atherosclerotic heart disease of [place] coronary artery without angina pectoris (11) Insomnia Current Visit: Yes Status: Acute Qualifiers: Insomnia type: unspecified Qualified Code(s): G47.00 - Insomnia, unspecified - Initial Treatment Plan Initial Treatment Plan: Psychoeducation.Detoxification.Trazodone 50 mg po hs.Patient is made aware of potential for priapism.He agrees to continue trazodone.Observation.
--- NOTE | 2017-06-15 10:51 | PN ---
BHS COWS - Scale Resting Pulse: 0= [place] 80 or Below Sweatin= Chills/Flushing Restless Observation: 3= Extraneous Movement Pupil Size: 2= Moderately Dilated Bone or Joint Aches: 4=Acute Joint/Muscle Pain Runny Nose/ Eye Tearin= Nasal Congestion GI Upset > 30mins: 1= Stomach Cramp Tremor Observation of Outstretched Hands: 1= Tremor [place], Not Seen Yawning Observation: 1= 1-2x During Session Anxiety or Irritability: 1=Feels Anxious/Irritable Goose Flesh Skin: 0=Smooth Skin COWS Score: 15 BHS Progress Note (SOAP) Subjective: ANXIETY,TREMORS,SWEATS, FATIGUE,INTERMITTENT SLEEP. Objective: 06/15/17 10:51 Vital Signs Temperature 96.5 F L 06/15/17 09:37 Pulse Rate 68 06/15/17 09:37 Respiratory Rate 18 06/15/17 09:37 Blood Pressure 128/78 06/15/17 09:37 O2 Sat by Pulse Oximetry (%) Laboratory Last Values Sodium 141 mmol/L (136-145) 06/15/17 07:00 Potassium 4.2 mmol/L (3.5-5.1) 06/15/17 07:00 Chloride 104 mmol/L (98-107) 06/15/17 07:00 Carbon Dioxide 30 mmol/L (21-32) 06/15/17 07:00 BUN 8 mg/dL (7-18) D 06/15/17 07:00 Creatinine 1.0 mg/dL (0.7-1.3) 06/15/17 07:00 Creat Clearance w eGFR > 60 (>60) 06/15/17 07:00 Random Glucose 126 mg/dL (74-106) H 06/15/17 07:00 Calcium 9.0 mg/dL (8.5-10.1) 06/15/17 07:00 Total Bilirubin 0.7 mg/dL (0.2-1.0) 06/15/17 07:00 AST 15 U/L (15-37) D 06/15/17 07:00 ALT 24 U/L (12-78) D 06/15/17 07:00 Alkaline Phosphatase 72 U/L (45-117) 06/15/17 07:00 Total Protein 7.1 g/dl (6.4-8.2) 06/15/17 07:00 Albumin 3.6 g/dl (3.4-5.0) 06/15/17 07:00 Urine Color Yellow 06/14/17 23:11 Urine Appearance Slcloudy 06/14/17 23:11 Urine pH 5.0 (5.0-8.0) 06/14/17 23:11 Urine Protein 1+ (NEGATIVE) H 06/14/17 23:11 Urine Glucose (UA) Negative (NEGATIVE) 06/14/17 23:11 Urine Ketones Negative (NEGATIVE) 06/14/17 23:11 Urine Blood 1+ (NEGATIVE) H 06/14/17 23:11 Urine Nitrite Negative (NEGATIVE) 06/14/17 23:11 Urine Bilirubin Negative (NEGATIVE) 06/14/17 23:11 Urine Urobilinogen Negative mg/dL (0.2-1.0) 06/14/17 23:11 Ur Leukocyte Esterase Negative (NEGATIVE) 06/14/17 23:11 Urine RBC 9 /hpf (0-3) 06/14/17 23:11 Urine WBC 2 /hpf (3-5) 06/14/17 23:11 Ur Epithelial Cells Rare /hpf (FEW) 06/14/17 23:11 Calcium Oxalate Crystal Few /hpf (NONE SEEN) 06/14/17 23:11 Urine Bacteria Few /hpf (NONE SEEN) 06/14/17 23:11 Urine Mucus Few 06/14/17 23:11 Assessment: 06/15/17 10:51 WITHDRAWAL SX Plan: CONTINUE DETOX
[2017-06-15] MEDS: IBUPROFEN 400 MG TABLET (FP) PO PRN (17:03)
--- NOTE | 2017-06-15 20:01 | EKG ---
Test Reason : Blood Pressure : / mmHG Vent. Rate : 063 BPM Atrial Rate : 063 BPM P-R Int : 156 ms QRS Dur : 088 ms QT Int : 432 ms P-R-T Axes : 060 044 238 degrees QTc Int : 442 ms NORMAL SINUS RHYTHM LEFT VENTRICULAR HYPERTROPHY WITH REPOLARIZATION ABNORMALITY NONSPECIFIC ST ABNORMALITY ABNORMAL ECG WHEN COMPARED WITH ECG OF 11-APR-2017 18:00, VENT. RATE HAS DECREASED BY [address] LESS DEPRESSED IN INFERIOR LEADS ST ELEVATION NOW PRESENT IN ANTERIOR LEADS Confirmed by JERONIMO GANT MD ([id number]) on 06/15/2017 8:01:07 PM Referred By: Confirmed By:JERONIMO GANT MD
[2017-06-15] MEDS: THIAMINE HCL 100 MG TABLET (FP) PO SCH (22:28)
[2017-06-15] MEDS: ATORVASTATIN CA 40 MG TABLET (FP) PO SCH (22:28)
[2017-06-15] MEDS: diphenhydrAMINE HCL 50 MG CAPSULE PO PRN (22:28)
[2017-06-16] MEDS: IBUPROFEN 400 MG TABLET (FP) PO PRN ×2 (05:45→18:34)
[2017-06-16] MEDS: diazePAM 5 MG TABLET PO PRN ×2 (05:45→22:18)
[2017-06-16] MEDS ORDERED: METHADONE HCL 5 MG TABLET (FOR DETOX USE ONLY) PO ONE (10:00)
[2017-06-16] MEDS: ASPIRIN 81 MG CHEWABLE TABLETS PO SCH (10:47)
[2017-06-16] MEDS: LISINOPRIL 5 MG TABLET (FP) PO SCH (10:47)
[2017-06-16] MEDS: PRENATAL VITAMINS W/ FOLIC ACID TABLET (FP) PO SCH (10:48)
--- NOTE | 2017-06-16 11:39 | PN ---
BHS COWS - Scale Resting Pulse: 0= [place] 80 or Below Sweatin= Chills/Flushing Restless Observation: 3= Extraneous Movement Pupil Size: 2= Moderately Dilated Bone or Joint Aches: 4=Acute Joint/Muscle Pain Runny Nose/ Eye Tearin= Nasal Congestion GI Upset > 30mins: 1= Stomach Cramp Tremor Observation of Outstretched Hands: 2= Slight Tremor Visible Yawning Observation: 1= 1-2x During Session Anxiety or Irritability: 2=Irritable/Anxious Goose Flesh Skin: 0=Smooth Skin COWS Score: 17 BHS Progress Note (SOAP) Subjective: ANXIETY,SWEATS,TREMORS. Objective: 06/16/17 11:37 Laboratory Last Values WBC 5.9 K/mm3 (4.0-10.0) 06/15/17 07:00 RBC 4.68 M/mm3 (4.00-5.60) 06/15/17 07:00 Hgb 12.9 GM/dL (11.7-16.9) 06/15/17 07:00 Hct 41.1 % (35.4-49) 06/15/17 07:00 MCV 87.7 fl (80-96) 06/15/17 07:00 MCH 27.5 pg (25.7-33.7) 06/15/17 07:00 MCHC 31.3 g/dl (32.0-35.9) L 06/15/17 07:00 RDW 13.1 % (11.9-15.9) 06/15/17 07:00 Plt Count 339 K/MM3 (134-434) 06/15/17 07:00 MPV 7.5 fl (7.5-11.1) 06/15/17 07:00 Sodium 141 mmol/L (136-145) 06/15/17 07:00 Potassium 4.2 mmol/L (3.5-5.1) 06/15/17 07:00 Chloride 104 mmol/L (98-107) 06/15/17 07:00 Carbon Dioxide 30 mmol/L (21-32) 06/15/17 07:00 Anion Gap Y 06/15/17 07:00 BUN 8 mg/dL (7-18) D 06/15/17 07:00 Creatinine 1.0 mg/dL (0.7-1.3) 06/15/17 07:00 Creat Clearance w eGFR > 60 (>60) 06/15/17 07:00 Random Glucose 126 mg/dL (74-106) H 06/15/17 07:00 Calcium 9.0 mg/dL (8.5-10.1) 06/15/17 07:00 Total Bilirubin 0.7 mg/dL (0.2-1.0) 06/15/17 07:00 AST 15 U/L (15-37) D 06/15/17 07:00 ALT 24 U/L (12-78) D 06/15/17 07:00 Alkaline Phosphatase 72 U/L (45-117) 06/15/17 07:00 Total Protein 7.1 g/dl (6.4-8.2) 06/15/17 07:00 Albumin 3.6 g/dl (3.4-5.0) 06/15/17 07:00 Urine Color Yellow 06/14/17 23:11 Urine Appearance Slcloudy 06/14/17 23:11 Urine pH 5.0 (5.0-8.0) 06/14/17 23:11 Ur Specific [place] >= 1.030 (1.005-1.025) H 06/14/17 23:11 Urine Protein 1+ (NEGATIVE) H 06/14/17 23:11 Urine Glucose (UA) Negative (NEGATIVE) 06/14/17 23:11 Urine Ketones Negative (NEGATIVE) 06/14/17 23:11 Urine Blood 1+ (NEGATIVE) H 06/14/17 23:11 Urine Nitrite Negative (NEGATIVE) 06/14/17 23:11 Urine Bilirubin Negative (NEGATIVE) 06/14/17 23:11 Urine Urobilinogen Negative mg/dL (0.2-1.0) 06/14/17 23:11 Ur Leukocyte Esterase Negative (NEGATIVE) 06/14/17 23:11 Urine RBC 9 /hpf (0-3) 06/14/17 23:11 Urine WBC 2 /hpf (3-5) 06/14/17 23:11 Ur Epithelial Cells Rare /hpf (FEW) 06/14/17 23:11 Calcium Oxalate Crystal Few /hpf (NONE SEEN) 06/14/17 23:11 Urine Bacteria Few /hpf (NONE SEEN) 06/14/17 23:11 Urine Mucus Few 06/14/17 23:11 RPR Titer Nonreactive (NONREACTIVE) 06/15/17 07:00 Assessment: 06/16/17 11:38 WITHDRAWAL SX Plan: CONTINUE DETOX INCREASE PO FLUIDS.
[2017-06-16] MEDS: TOLNAFTATE 1% CREAM 15 GM TUBE TP SCH ×2 (13:18→22:18)
[2017-06-16] MEDS: THIAMINE HCL 100 MG TABLET (FP) PO SCH (22:18)
[2017-06-16] MEDS: diphenhydrAMINE HCL 50 MG CAPSULE PO PRN (22:19)
[2017-06-16] MEDS: ATORVASTATIN CA 40 MG TABLET (FP) PO SCH (22:19)
[2017-06-17] MEDS: IBUPROFEN 400 MG TABLET (FP) PO PRN (05:31)
[2017-06-17] MEDS: diazePAM 5 MG TABLET PO PRN ×2 (05:31→10:30)
[2017-06-17] MEDS ORDERED: METHADONE HCL 5 MG TABLET (FOR DETOX USE ONLY) PO ONE (10:00)
[2017-06-17] MEDS: PRENATAL VITAMINS W/ FOLIC ACID TABLET (FP) PO SCH (10:30)
[2017-06-17] MEDS: ASPIRIN 81 MG CHEWABLE TABLETS PO SCH (10:30)
[2017-06-17] MEDS: LISINOPRIL 5 MG TABLET (FP) PO SCH (10:30)
[2017-06-17] MEDS: TOLNAFTATE 1% CREAM 15 GM TUBE TP SCH ×2 (10:31→22:25)
--- NOTE | 2017-06-17 11:36 | PN ---
BHS Progress Note (SOAP) Subjective: C/O TREMORS,NAUSEA AND VOMITING. Objective: 06/17/17 11:34 Vital Signs Temperature 98.5 F 06/17/17 09:36 Pulse Rate 77 06/17/17 09:36 Respiratory Rate 18 06/17/17 09:36 Blood Pressure 124/91 06/17/17 09:36 O2 Sat by Pulse Oximetry (%) Laboratory Last Values WBC 5.9 K/mm3 (4.0-10.0) 06/15/17 07:00 RBC 4.68 M/mm3 (4.00-5.60) 06/15/17 07:00 Hgb 12.9 GM/dL (11.7-16.9) 06/15/17 07:00 Hct 41.1 % (35.4-49) 06/15/17 07:00 MCV 87.7 fl (80-96) 06/15/17 07:00 MCH 27.5 pg (25.7-33.7) 06/15/17 07:00 MCHC 31.3 g/dl (32.0-35.9) L 06/15/17 07:00 RDW 13.1 % (11.9-15.9) 06/15/17 07:00 Plt Count 339 K/MM3 (134-434) 06/15/17 07:00 MPV 7.5 fl (7.5-11.1) 06/15/17 07:00 Sodium 141 mmol/L (136-145) 06/15/17 07:00 Potassium 4.2 mmol/L (3.5-5.1) 06/15/17 07:00 Chloride 104 mmol/L (98-107) 06/15/17 07:00 Carbon Dioxide 30 mmol/L (21-32) 06/15/17 07:00 Anion Gap Y 06/15/17 07:00 BUN 8 mg/dL (7-18) D 06/15/17 07:00 Creatinine 1.0 mg/dL (0.7-1.3) 06/15/17 07:00 Creat Clearance w eGFR > 60 (>60) 06/15/17 07:00 Random Glucose 126 mg/dL (74-106) H 06/15/17 07:00 Calcium 9.0 mg/dL (8.5-10.1) 06/15/17 07:00 Total Bilirubin 0.7 mg/dL (0.2-1.0) 06/15/17 07:00 AST 15 U/L (15-37) D 06/15/17 07:00 ALT 24 U/L (12-78) D 06/15/17 07:00 Alkaline Phosphatase 72 U/L (45-117) 06/15/17 07:00 Total Protein 7.1 g/dl (6.4-8.2) 06/15/17 07:00 Albumin 3.6 g/dl (3.4-5.0) 06/15/17 07:00 Urine Color Yellow 06/14/17 23:11 Urine Appearance Slcloudy 06/14/17 23:11 Urine pH 5.0 (5.0-8.0) 06/14/17 23:11 Ur Specific [place] >= 1.030 (1.005-1.025) H 06/14/17 23:11 Urine Protein 1+ (NEGATIVE) H 06/14/17 23:11 Urine Glucose (UA) Negative (NEGATIVE) 06/14/17 23:11 Urine Ketones Negative (NEGATIVE) 06/14/17 23:11 Urine Blood 1+ (NEGATIVE) H 06/14/17 23:11 Urine Nitrite Negative (NEGATIVE) 06/14/17 23:11 Urine Bilirubin Negative (NEGATIVE) 06/14/17 23:11 Urine Urobilinogen Negative mg/dL (0.2-1.0) 06/14/17 23:11 Ur Leukocyte Esterase Negative (NEGATIVE) 06/14/17 23:11 Urine RBC 9 /hpf (0-3) 06/14/17 23:11 Urine WBC 2 /hpf (3-5) 06/14/17 23:11 Ur Epithelial Cells Rare /hpf (FEW) 06/14/17 23:11 Calcium Oxalate Crystal Few /hpf (NONE SEEN) 06/14/17 23:11 Urine Bacteria Few /hpf (NONE SEEN) 06/14/17 23:11 Urine Mucus Few 06/14/17 23:11 RPR Titer Nonreactive (NONREACTIVE) 06/15/17 07:00 Assessment: 06/17/17 11:35 WITHDRAWAL SX Plan: CONTINUE DETOX FBS IN AM R/O HYPERGLYCEMIA.
[2017-06-17] MEDS: diphenhydrAMINE HCL 50 MG CAPSULE PO PRN (22:24)
[2017-06-17] MEDS: ATORVASTATIN CA 40 MG TABLET (FP) PO SCH (22:24)
[2017-06-17] MEDS: THIAMINE HCL 100 MG TABLET (FP) PO SCH (22:24)
[2017-06-18] MEDS: IBUPROFEN 400 MG TABLET (FP) PO PRN (05:36)
[2017-06-18] MEDS ORDERED: METHADONE HCL 10 MG TABLET (FOR DETOX USE ONLY) PO ONE (10:00)
[2017-06-18] MEDS: PRENATAL VITAMINS W/ FOLIC ACID TABLET (FP) PO SCH (10:32)
[2017-06-18] MEDS: ASPIRIN 81 MG CHEWABLE TABLETS PO SCH (10:32)
[2017-06-18] MEDS: LISINOPRIL 5 MG TABLET (FP) PO SCH (10:32)
[2017-06-18] MEDS: TOLNAFTATE 1% CREAM 15 GM TUBE TP SCH ×2 (10:35→23:16)
--- NOTE | 2017-06-18 19:17 | PN ---
BHS Progress Note (SOAP) Subjective: Diarrhea, Tremors, Sweating, Body Aches. Objective: PT. A & O X 3, OBSERVED AMBULATING ON UNIT. NO ACUTE DISTRESS. 06/18/17 19:15 Vital Signs Temperature 97.1 F L 06/18/17 18:47 Pulse Rate 86 06/18/17 18:47 Respiratory Rate 18 06/18/17 18:47 Blood Pressure 125/75 06/18/17 18:47 O2 Sat by Pulse Oximetry (%) Laboratory Tests 06/14/17 06/15/17 06/15/17 23:11 07:00 07:00 WBC 5.9 RBC 4.68 Hgb 12.9 Hct 41.1 MCV 87.7 MCH 27.5 MCHC 31.3 L RDW 13.1 Plt Count 339 MPV 7.5 Sodium 141 Potassium 4.2 Chloride 104 Carbon Dioxide 30 Anion Gap Y BUN 8 D Creatinine 1.0 Creat Clearance w eGFR > 60 POC Glucometer Random Glucose 126 H Calcium 9.0 Total Bilirubin 0.7 AST 15 D ALT 24 D Alkaline Phosphatase 72 Total Protein 7.1 Albumin 3.6 Urine Color Yellow Urine Appearance Slcloudy Urine pH 5.0 Ur Specific [place] >= 1.030 H Urine Protein 1+ H Urine Glucose (UA) Negative Urine Ketones Negative Urine Blood 1+ H Urine Nitrite Negative Urine Bilirubin Negative Urine Urobilinogen Negative Ur Leukocyte Esterase Negative Urine RBC 9 Urine WBC 2 Ur Epithelial Cells Rare Calcium Oxalate Crystal Few Urine Bacteria Few Urine Mucus Few RPR Titer 06/15/17 06/18/17 07:00 05:39 WBC RBC Hgb Hct MCV MCH MCHC RDW Plt Count MPV Sodium Potassium Chloride Carbon Dioxide Anion Gap BUN Creatinine Creat Clearance w eGFR POC Glucometer 115 Random Glucose Calcium Total Bilirubin AST ALT Alkaline Phosphatase Total Protein Albumin Urine Color Urine Appearance Urine pH Ur Specific [place] Urine Protein Urine Glucose (UA) Urine Ketones Urine Blood Urine Nitrite Urine Bilirubin Urine Urobilinogen Ur Leukocyte Esterase Urine RBC Urine WBC Ur Epithelial Cells Calcium Oxalate Crystal Urine Bacteria Urine Mucus RPR Titer Nonreactive LABS NOTED. Assessment: 06/18/17 19:15 WITHDRAWAL SYMPTOMS. Plan: CONTINUE DETOX.
[2017-06-18] MEDS: THIAMINE HCL 100 MG TABLET (FP) PO SCH (22:22)
[2017-06-18] MEDS: ATORVASTATIN CA 40 MG TABLET (FP) PO SCH (22:22)
[2017-06-18] MEDS: diphenhydrAMINE HCL 50 MG CAPSULE PO PRN (22:24)
[2017-06-19] MEDS ORDERED: METHADONE HCL 5 MG TABLET (FOR DETOX USE ONLY) PO ONE (06:00)
[2017-06-19 09:55] VITALS: BP 135/80; PULSE 83; TEMP 96.6
[2017-06-19] MEDS: ASPIRIN 81 MG CHEWABLE TABLETS PO SCH (10:26)
[2017-06-19] MEDS: PRENATAL VITAMINS W/ FOLIC ACID TABLET (FP) PO SCH (10:26)
[2017-06-19] MEDS: LISINOPRIL 5 MG TABLET (FP) PO SCH (10:26)
[2017-06-19] MEDS: TOLNAFTATE 1% CREAM 15 GM TUBE TP SCH (10:26)
--- NOTE | 2017-06-19 13:09 | DS ---
[facility] Detox Discharge Summary Admission Date: 06/14/17 Discharge Date: 06/19/17 - History Present History: Opioid Dependence Pertinent Past History: Acute NH HLD HTN - Physical Exam Results Vital Signs: Vital Signs Temperature 96.6 F L 06/19/17 09:55 Pulse Rate 83 06/19/17 09:55 Respiratory Rate 18 06/19/17 09:55 Blood Pressure 135/80 06/19/17 09:55 O2 Sat by Pulse Oximetry (%) Pertinent Admission Physical Exam Findings: Withdrawal symptoms Laboratory Tests 06/14/17 06/15/17 06/15/17 23:11 07:00 07:00 WBC 5.9 RBC 4.68 Hgb 12.9 Hct 41.1 MCV 87.7 MCH 27.5 MCHC 31.3 L RDW 13.1 Plt Count 339 MPV 7.5 Sodium 141 Potassium 4.2 Chloride 104 Carbon Dioxide 30 Anion Gap Y BUN 8 D Creatinine 1.0 Creat Clearance w eGFR > 60 POC Glucometer Random Glucose 126 H Calcium 9.0 Total Bilirubin 0.7 AST 15 D ALT 24 D Alkaline Phosphatase 72 Total Protein 7.1 Albumin 3.6 Urine Color Yellow Urine Appearance Slcloudy Urine pH 5.0 Ur Specific [place] >= 1.030 H Urine Protein 1+ H Urine Glucose (UA) Negative Urine Ketones Negative Urine Blood 1+ H Urine Nitrite Negative Urine Bilirubin Negative Urine Urobilinogen Negative Ur Leukocyte Esterase Negative Urine RBC 9 Urine WBC 2 Ur Epithelial Cells Rare Calcium Oxalate Crystal Few Urine Bacteria Few Urine Mucus Few RPR Titer 06/15/17 06/18/17 06/19/17 07:00 05:39 05:59 WBC RBC Hgb Hct MCV MCH MCHC RDW Plt Count MPV Sodium Potassium Chloride Carbon Dioxide Anion Gap BUN Creatinine Creat Clearance w eGFR POC Glucometer 115 103 Random Glucose Calcium Total Bilirubin AST ALT Alkaline Phosphatase Total Protein Albumin Urine Color Urine Appearance Urine pH Ur Specific [place] Urine Protein Urine Glucose (UA) Urine Ketones Urine Blood Urine Nitrite Urine Bilirubin Urine Urobilinogen Ur Leukocyte Esterase Urine RBC Urine WBC Ur Epithelial Cells Calcium Oxalate Crystal Urine Bacteria Urine Mucus RPR Titer Nonreactive Labs noted: proteinuria and microscopic hematuria noted - Treatment Hospital Course: Detox Protocol Followed, Detoxed Safely, Responded well, Discharged Condition Good, Rehab Referral Accepted - Medication Discharge Medications: Ambulatory Orders Aspirin [ASA -] 81 mg PO DAILY 06/12/17 Atorvastatin Ca [Lipitor] 80 mg PO HS 04/11/17 Lisinopril 5 mg PO DAILY 04/11/17 Trazodone HCl [Desyrel -] 50 mg PO HS #30 tablet 06/18/17 - Diagnosis (1) Nicotine dependence Status: Chronic Qualifiers: Nicotine product type: cigarettes Substance use status: uncomplicated Qualified Code(s): F17.210 - Nicotine dependence, cigarettes, uncomplicated (2) Opioid dependence with withdrawal Status: Acute (3) Anxiety and depression Status: Chronic (4) Hypercholesterolemia Status: Chronic (5) Hypertension Status: Chronic Qualifiers: Hypertension type: essential hypertension Qualified Code(s): I10 - Essential (primary) hypertension (6) [place] (myocardial infarction) Status: Acute - AMA Did Patient Leave Against Medical Advice: No (Repeat UA for proteinuria and microscopic hematuria)
== END 2017-06-19 11:06 | disposition home or self-care (01) | DRG 773 ==
LOC: YASAS 13:54 → Y3N 16:12
PROVIDERS: ADMIT Internal Medicine; ATTEND Internal Medicine
PROC: HZ2ZZZZ Detoxification Services for Substance Abuse Treatment (ICD-10-PCS; principal; 2017-06-14)
DX: F11.23 Opioid dependence with withdrawal (principal); F17.210 Nicotine dependence, cigarettes, uncomplicated; F41.8 Other specified anxiety disorders; F19.24 Other psychoactive substance dependence with psychoactive substance-induced mood disorder; E78.00 Pure hypercholesterolemia, unspecified; I10 Essential (primary) hypertension; I25.10 Atherosclerotic heart disease of native coronary artery without angina pectoris; I25.2 Old myocardial infarction; M19.90 Unspecified osteoarthritis, unspecified site; M54.5 Low back pain; G89.29 Other chronic pain; G47.00 Insomnia, unspecified; Z59.0 Homelessness
CPT/HCPCS: 36415; 80053; 81003; 81015; 85027; 86593; 93005; 93010

== ENCOUNTER 2017-06-19 10:44 | Inpatient (IN) | payer OTHER ==
[2017-06-19 11:16] VITALS: BMI 29.6
[2017-06-19] MEDS ORDERED: MAG HYDROX/AL HYDROX/SIMETH 30 ML UNIT-DOSE CUP PO PRN (11:31)
[2017-06-19] MEDS ORDERED: diphenhydrAMINE HCL 50 MG CAPSULE PO PRN (11:31)
[2017-06-19] MEDS ORDERED: MENTHOL/PHENOL 1 EACH UD MM PRN (11:31)
[2017-06-19] MEDS ORDERED: LOPERAMIDE HCL 2 MG CAPSULE PO PRN (11:31)
[2017-06-19] MEDS ORDERED: hydrOXYzine PAMOATE 50 MG CAPSULE (FP) PO PRN (11:31)
[2017-06-19] MEDS ORDERED: guaiFENesin/D-METHORPHAN HB 10 ML UNIT-DOSE CUPS PO PRN (11:31)
[2017-06-19] MEDS ORDERED: ACETAMINOPHEN 325 MG TABLET (FP) PO PRN (11:31)
[2017-06-19] MEDS ORDERED: MAGNESIUM HYDROX 2400MG/30ML ORAL SUSPENSION 30 ML CUP PO PRN (11:31)
[2017-06-19] MEDS ORDERED: P-EPHED 60MG/TRIPROLIDI 2.5MG TABLET PO PRN (11:31)
[2017-06-19] MEDS ORDERED: MAGNESIUM CITRATE 300 ML BOTTLE PO PRN (11:31)
--- NOTE | 2017-06-19 11:31 | HP ---
ASHU HARTMAN Rehab Assess/Revision - Admission History Admitted to Rehab from: [facility] Date of Admission to Rehab: 06/19/17 - Vital signs Vital Signs: Vital Signs Period Temp Pulse Resp BP Sys/Naidu Pulse Ox Last 24 Hr 97.6 F 84 19 137/72 - Findings Detox History & Physical reviewed: Yes Concur with findings: Yes Comments/Additional Findings: FOR REHAB PROTOCOL
[2017-06-19] MEDS ORDERED: ATORVASTATIN CA 40 MG TABLET (FP) ONE (20:35)
[2017-06-19] MEDS: IBUPROFEN 400 MG TABLET (FP) PO PRN (21:06)
[2017-06-19] MEDS ORDERED: traZODone HCL 50 MG TABLET (FP) PO SCH (22:00)
[2017-06-19] MEDS ORDERED: ATORVASTATIN CA 80 MG TABLET (FP) PO SCH (22:00)
[2017-06-19] MEDS ORDERED: THIAMINE HCL 100 MG TABLET (FP) PO SCH (22:00)
[2017-06-20] MEDS: IBUPROFEN 400 MG TABLET (FP) PO PRN (06:42)
[2017-06-20 07:04] VITALS: BP 135/76; PULSE 79; TEMP 97.7
[2017-06-20] MEDS ORDERED: LISINOPRIL 5 MG TABLET (FP) PO SCH (10:00)
[2017-06-20] MEDS ORDERED: ASPIRIN 81 MG CHEWABLE TABLETS PO SCH (10:00)
[2017-06-20] MEDS ORDERED: PRENATAL VITAMINS W/ FOLIC ACID TABLET (FP) PO SCH (10:00)
--- NOTE | 2017-06-20 11:15 | HP ---
Psychiatrist Admission - Data Date of interview: 06/20/17 Admission source: [address] [place] [address] Identifying data: This is the first admission to [address] [place] [address] for this 56 years old AA father of 1 grown son,undomiciled,supported by [facility]. Medical History: Significant for Disk disease,Chronic arthritis. Psychiatric History: Patient reports some sleeping difficulties on and off, taking Trazodone 50 mg po hs obtaining from his Family doctor. Physical/Sexual Abuse/Trauma History: denies Vital Signs: Vital Signs - 24 hr 06/20/17 06/20/17 00:30 06:00 Temperature 97.7 F Pulse Rate 79 Respiratory 20 18 Rate Blood Pressure 135/76 Allergies/Adverse Reactions: Allergies Allergy/AdvReac Type Severity Reaction Status Date / Time No Known Allergies Allergy Verified 06/14/17 15:59 Date of last physical exam: 06/14/17 Concur with the findings of this exam: Yes - Substance Abuse/Tx History Hx Alcohol Use: Yes (reports drinking since 24 yo,Bacardi ) Hx Substance Use: Yes (marijuana since 16,cocaine since 29 yo,heroin since 19 yo (sniffing)4 bags d) Substance Use Type: Alcohol, Cocaine, Heroin, Marijuana, Tranquilizers Hx Substance Use Treatment: Yes (completed [facility] treatment 9 yo,longest sobriety 10 years) - Admission Criteria Previous failed treatment: Yes Poor recovery environment: Yes Comorbidities: Yes Lacks judgement: Yes Mental Status Exam - Mental Status Exam Alert and Oriented to: Time, Place, Person Cognitive Function: Grossly Intact Patient Appearance: Well Groomed Mood: Euthymic Affect: Appropriate, Mood Congruent Patient Behavior: Appropriate, Cooperative Speech Pattern: Clear Voice Loudness: Normal Thought Process: Goal Oriented Thought Disorder: Not Present Hallucinations: Denies Suicidal Ideation: Denies Homicidal Ideation: Denies Insight/Judgement: Fair Sleep: Fair Appetite: Good Muscle strength/Tone: Normal Gait/Station: Normal Psychiatric Findings - Problem List ([place] 1, 2,3) (1) Old AR (myocardial infarction) Current Visit: Yes Status: Chronic (2) Substance induced mood disorder Current Visit: Yes Status: Chronic (3) Arthritis Current Visit: Yes Status: Chronic (4) Coronary artery disease Current Visit: Yes Status: Chronic Qualifiers: Coronary Disease-Associated Artery/Lesion type: unspecified vessel or lesion type [place] vs. transplanted heart: unspecified whether [place] or transplanted heart Associated angina: angina presence unspecified Qualified Code(s): I25.10 - Atherosclerotic heart disease of [place] coronary artery without angina pectoris (5) Benzodiazepine dependence Current Visit: Yes Status: Chronic - Initial Treatment Plan Initial Treatment Plan: Will monitor progress.
== END 2017-06-20 17:50 | disposition left against medical advice (07) | DRG 770 ==
LOC: YASAS 10:44 → Y3W 10:47
PROVIDERS: ADMIT Psychiatry & Neurology Psychiatry; ATTEND Psychiatry & Neurology Psychiatry
PROC: HZ42ZZZ Group Counseling for Substance Abuse Treatment, Cognitive-Behavioral (ICD-10-PCS; principal; 2017-06-19)
DX: F13.20 Sedative, hypnotic or anxiolytic dependence, uncomplicated (principal); F19.24 Other psychoactive substance dependence with psychoactive substance-induced mood disorder; I25.10 Atherosclerotic heart disease of native coronary artery without angina pectoris; I25.2 Old myocardial infarction; M19.90 Unspecified osteoarthritis, unspecified site; Z59.0 Homelessness

== ENCOUNTER 2017-12-16 12:28 | Inpatient (IN) | payer OTHER ==
[2017-12-16 16:55] VITALS: BMI 26.9
--- NOTE | 2017-12-16 17:50 | HP ---
COWS - Scale Resting Pulse: 1= [place] 81-100 Sweatin= Chills/Flushing Restless Observation: 1= Difficult to Sit Still Pupil Size: 1= Pupils >than Normal Bone or Joint Aches: 2= Severe Diffuse Aches Runny Nose/ Eye Tearin= Runny Nose/Eyes GI Upset > 30mins: 2= Nausea/Diarrhea Tremor Observation: 1= Tremor [place], Not Seen Yawning Observation: 1= 1-2x During Session Anxiety or Irritability: 2=Irritable/Anxious Goose Flesh Skin: 0=Smooth Skin COWS Score: 14 CIWA Score - CIWA Score Nausea/Vomitin Muscle Tremors: 1-None Visible, but [place] Anxiety: 2 Agitation: 1-Slight > Activity Paroxysmal Sweats: 2 Orientation: 1-Uncertain about Date Tacttile Disturbances: 0-None Auditory Disturbances: 0-None Visual Disturbances: 0-None Headache: 3-Moderate CIWA-Ar Total Score: 12 Admission ROS S - HPI Chief Complaint: WITHDRAWAL SYMPTOMS Allergies/Adverse Reactions: Allergies Allergy/AdvReac Type Severity Reaction Status Date / Time No Known Allergies Allergy Verified 12/16/17 17:37 History of Present Illness: 57 Y.O. MAN WITH AN EXTENSIVE HISTORY OF ALCOHOL AND HEROIN DEPENDENCE IS HERE SEEKING DETOX. HE WAS LAST HERE IN 05/2017 AND REPORTS HIS LONGEST PERIOD OF ALCOHOL AND DRUG ABSTINENCE HAS BEEN 2 YEARS. Exam Limitations: No Limitations - Ebola screening Have you traveled outside of the country in the last 21 days: No Have you had contact with anyone from an Ebola affected area: No Have you been sick,other than usual withdrawal symptoms: No - Review of Systems Constitutional: Chills, Diaphoresis, Loss of Appetite, Unintentional Wgt. Loss EENT: reports: Tearing Respiratory: reports: No Symptoms reported Cardiac: reports: No Symptoms Reported GI: reports: Diarrhea, Abdominal cramping : reports: No Symptoms Reported Musculoskeletal: reports: Back Pain Integumentary: reports: No Symptoms Reported Neuro: reports: Headache Endocrine: reports: No Symptoms Reported Hematology: reports: No Symptoms Reported Psychiatric: reports: Orientated x3, Anxious, Depressed Other Systems: Reviewed and Negative Patient History - Patient Medical History Hx Anemia: No Hx Asthma: No Hx Chronic Obstructive Pulmonary Disease (COPD): No Hx Cancer: No Hx Cardiac Disorders: No Hx Congestive Heart Failure: No Hx Hypertension: Yes (on meds.) Hx Hypercholesterolemia: Yes (on med) Hx Pacemaker: No HX Cerebrovascular Accident: No Hx Seizures: No Hx Dementia: No Hx Diabetes: No Hx Gastrointestinal Disorders: No Hx Liver Disease: No Hx Genitourinary Disorders: No Hx Sexually Transmitted Disorders: No Hx Renal Disease (ESRD): No Hx Thyroid Disease: No Hx Human Immunodeficiency Virus (HIV): No (last tested 12/17) Hx Hepatitis C: No Hx Depression: Yes Hx Suicide Attempt: No Hx Bipolar Disorder: No Hx Schizophrenia: No - Patient Surgical History Past Surgical History: No Anesthesia Reaction: No - PPD History Previous Implant?: Yes Documented Results: Negative w/proof Implanted On Prior [facility] Admission?: Yes Date: 04/13/17 Results: 0 mm PPD to be Administered?: No - Reproductive History Patient is a Female of Child Bearing Age (11 -55 yrs old): No - Smoking Cessation Smoking history: Current every day smoker Have you smoked in the past 12 months: Yes Aproximately how many cigarettes per day: 3 Hx Chewing Tobacco Use: No Initiated information on smoking cessation: Yes 'Breaking Loose' booklet given: 12/16/17 - Substance & Tx. History Hx Alcohol Use: Yes Hx Substance Use: Yes Substance Use Type: Alcohol, Heroin Hx Substance Use Treatment: Yes (DETOX: 05/2017 ) - Substances Abused Heroin Route: Inhalation Frequency: Daily Amount used: 5-6 bags Age of first use: 17 Date of Last Use: 12/16/17 Alcohol Route: Oral Frequency: Daily Amount used: 1-2 pints vodka Age of first use: 29 Date of Last Use: 12/16/17 Family Disease History - Family Disease History Family Disease History: Other: Father (alcohol,), Mother (alcohol, ) Admission Physical Exam [facility] - Vital Signs Vital Signs: Vital Signs - 24 hr 12/16/17 16:52 Temperature 96.6 F L Pulse Rate 92 H Respiratory 20 Rate Blood Pressure 122/58 - Physical General Appearance: Yes: Sweating, Anxious HEENTM: Yes: Hearing grossly Normal, Normocephalic, Normal Voice Respiratory: Yes: Chest Non-Tender, Lungs Clear, Normal Breath Sounds, No Respiratory Distress, No Accessory Muscle Use Neck: Yes: No masses,lesions,Nodules, Trachea in good position Breast: Yes: Breast Exam Deferred Cardiology: Yes: Regular Rhythm, Regular Rate Abdominal: Yes: Normal Bowel Sounds, Non Tender, Flat Genitourinary: Yes: Other (NO COMPLAINTS REPORTED) Back: Yes: Normal Inspection Musculoskeletal: Yes: full range of Motion, Gait Steady Extremities: Yes: Normal Capillary Refill, Normal Inspection Neurological: Yes: Alert, Motor Strength 5/5, Normal Mood/Affect, Normal Response Integumentary: Yes: Normal Color, Dry, Warm Lymphatic: Yes: Within Normal Limits - Diagnostic (1) Alcohol dependence with uncomplicated withdrawal Current Visit: Yes Status: Chronic (2) Opioid dependence with withdrawal Current Visit: Yes Status: Chronic (3) Arthritis Current Visit: Yes Status: Chronic (4) Hypertension Current Visit: Yes Status: Chronic Qualifiers: Hypertension type: essential hypertension Qualified Code(s): I10 - Essential (primary) hypertension (5) Nicotine dependence Current Visit: Yes Status: Chronic Qualifiers: Nicotine product type: cigarettes Substance use status: uncomplicated Qualified Code(s): F17.210 - Nicotine dependence, cigarettes, uncomplicated (6) Hyperlipidemia Current Visit: Yes Status: Chronic Cleared for Admission [facility] - Detox or Rehab [facility] Level of Care: Medically Managed Detox Regimen/Protocol: Methadone/Librium [facility] Breath Alcohol Content Breath Alcohol Content: 0.018 Urine Drug Screen - Results Drug Screen Negative: No Urine Drug Screen Results: OPI-Opiates, BZO-Benzodiazepines, MTD-Methadone, OXY- Oxycodone
[2017-12-16] MEDS ORDERED: MENTHOL/PHENOL 1 EACH UD MM PRN (18:02)
[2017-12-16] MEDS ORDERED: MAGNESIUM CITRATE 300 ML BOTTLE PO PRN (18:02)
[2017-12-16] MEDS ORDERED: METHADONE HCL 10 MG TABLET (FOR DETOX USE ONLY) PO ONE ×2 (18:02→23:00)
[2017-12-16] MEDS ORDERED: P-EPHED 60MG/TRIPROLIDI 2.5MG TABLET PO PRN (18:02)
[2017-12-16] MEDS ORDERED: hydrOXYzine PAMOATE 50 MG CAPSULE (FP) PO PRN (18:02)
[2017-12-16] MEDS ORDERED: MAG HYDROX/AL HYDROX/SIMETH 30 ML UNIT-DOSE CUP PO PRN (18:02)
[2017-12-16] MEDS ORDERED: chlordiazePOXIDE HCL 25 MG CAPSULE PO ONE (18:02)
[2017-12-16] MEDS ORDERED: MAGNESIUM HYDROX 2400MG/30ML ORAL SUSPENSION 30 ML CUP PO PRN (18:02)
[2017-12-16] MEDS ORDERED: chlordiazePOXIDE HCL 25 MG CAPSULE PO PRN (18:02)
[2017-12-16] MEDS ORDERED: guaiFENesin/D-METHORPHAN HB 10 ML UNIT-DOSE CUPS PO PRN (18:02)
[2017-12-16] MEDS ORDERED: LOPERAMIDE HCL 2 MG CAPSULE PO PRN (18:02)
[2017-12-16] MEDS ORDERED: METHADONE HCL 10 MG TABLET (FOR DETOX USE ONLY) ONE (20:25)
[2017-12-16] MEDS ORDERED: chlordiazePOXIDE HCL 25 MG CAPSULE ONE (20:27)
[2017-12-16] MEDS: THIAMINE HCL 100 MG TABLET (FP) PO SCH (22:03)
[2017-12-16] MEDS: ATORVASTATIN CA 80 MG TABLET (FP) PO SCH (22:03)
[2017-12-16] MEDS: chlordiazePOXIDE HCL 25 MG CAPSULE PO SCH (22:05)
[2017-12-17] MEDS: chlordiazePOXIDE HCL 25 MG CAPSULE PO SCH ×4 (05:59→22:39)
[2017-12-17] MEDS ORDERED: METHADONE HCL 10 MG TABLET (FOR DETOX USE ONLY) PO SCH (10:00)
[2017-12-17] MEDS: ASPIRIN 81 MG CHEWABLE TABLETS PO SCH (10:57)
[2017-12-17] MEDS: LISINOPRIL 5 MG TABLET (FP) PO SCH (10:57)
[2017-12-17] MEDS: NICOTINE 14 MG/24 HOURS TOPICAL PATCH TD SCH (10:57)
[2017-12-17] MEDS: ACETAMINOPHEN 325 MG TABLET (FP) PO PRN (10:58)
[2017-12-17] MEDS: PRENATAL VITAMINS W/ FOLIC ACID TABLET (FP) PO SCH (10:59)
--- NOTE | 2017-12-17 12:09 | PN ---
[facility] CIWA - CIWA Score Nausea/Vomitin Muscle Tremors: 3 Anxiety: 3 Agitation: 3 Paroxysmal Sweats: 1-Minimal Palms Moist Orientation: 0-Oriented Tacttile Disturbances: 1-Very Mild Itch/Numbness Auditory Disturbances: 1-Very Mild Visual Disturbances: 0-None Headache: 2-Mild CIWA-Ar Total Score: 17 [facility] COWS - Scale Resting Pulse: 0= [place] 80 or Below Sweatin= Chills/Flushing Restless Observation: 3= Extraneous Movement Pupil Size: 1= Pupils >than Normal Bone or Joint Aches: 2= Severe Diffuse Aches Runny Nose/ Eye Tearin= Runny Nose/Eyes GI Upset > 30mins: 3= Vomiting/Diarrhea Tremor Observation of Outstretched Hands: 2= Slight Tremor Visible Yawning Observation: 1= 1-2x During Session Anxiety or Irritability: 2=Irritable/Anxious Goose Flesh Skin: 0=Smooth Skin COWS Score: 17 [facility] Progress Note (SOAP) Subjective: ALERT,IRRITABLE,ANXIOUS,INTERRUPTED SLEEP,TREMOR,PAIN IN THE BODY AND BACK Objective: 12/17/17 12:07 Vital Signs Temperature 96.7 F L 12/17/17 09:54 Pulse Rate 96 H 12/17/17 09:54 Respiratory Rate 18 12/17/17 09:54 Blood Pressure 118/66 12/17/17 09:54 O2 Sat by Pulse Oximetry (%) EKG NSR,INVERTED T IN 2,AVF,5 TO V6 NO CHEST PAIN,NO SOB,NO DIZZINESS LABS PENDING Assessment: 12/17/17 12:09 WITHDRAWAL SYMPTOM Plan: CONTINUE DETOX
--- NOTE | 2017-12-17 12:20 | EKG ---
Test Reason : Blood Pressure : / mmHG Vent. Rate : 087 BPM Atrial Rate : 087 BPM P-R Int : 158 ms QRS Dur : 082 ms QT Int : 366 ms P-R-T Axes : 063 054 242 degrees QTc Int : 440 ms NORMAL SINUS RHYTHM LEFT VENTRICULAR HYPERTROPHY WITH REPOLARIZATION ABNORMALITY ABNORMAL ECG WHEN COMPARED WITH ECG OF 14-JUN-2017 18:08, NO SIGNIFICANT CHANGE WAS FOUND Confirmed by FRANCINE HARTMAN, OTF ([id number]) on 12/17/2017 12:19:56 PM Referred By: Confirmed By:OTF ESCAMILLA MD
[2017-12-17 12:27] LABS: HEMATOCRIT 37.6 % (35.4-49); HEMOGLOBIN 11.8 GM/dL (11.7-16.9); MCH 27.4 pg (25.7-33.7); MCHC 31.4 g/dl (32.0-35.9); MEAN CELL VOLUME 87.4 fl (80-96); MEAN PLT VOLUME 7.2 fl (7.5-11.1); PLATELET COUNT 352 K/MM3 (134-434); RDW 13.2 % (11.9-15.9); WHITE BLOOD COUNT 6.6 K/mm3 (4.0-10.0)
[2017-12-17 12:29] LABS: URINE APPEARANCE TURBID; URINE BILIRUBIN NEGATIVE (NEGATIVE); URINE BLOOD NEGATIVE (NEGATIVE); URINE COLOR YELLOW; URINE GLUCOSE (UA) NEGATIVE (NEGATIVE); URINE KETONE NEGATIVE (NEGATIVE); URINE LEUK ESTERASE NEGATIVE (NEGATIVE); URINE NITRITE NEGATIVE (NEGATIVE)
[2017-12-17 12:48] LABS: ALBUMIN 3.4 g/dl (3.4-5.0); ANION GAP 7 (8-16); BILIRUBIN,TOTAL 0.5 mg/dL (0.2-1.0); BLOOD UREA NITROGEN 17 mg/dL (7-18); CALCIUM 7.7 mg/dL (8.5-10.1); CHLORIDE 108 mmol/L (98-107); CO2 26 mmol/L (21-32); GLUCOSE,RANDOM 148 mg/dL (74-106); POTASSIUM 4.1 mmol/L (3.5-5.1); SGOT/AST 15 U/L (15-37); SGPT/ALT 20 U/L (12-78); SODIUM 141 mmol/L (136-145); TOT PROT 6.8 g/dl (6.4-8.2)
[2017-12-17 12:49] LABS: ALK PHOS 77 U/L (45-117)
[2017-12-17 12:56] LABS: URINE PROTEIN 1+ (NEGATIVE)
[2017-12-17 13:14] LABS: CALCIUM OXALATE CRYSTALS FEW /hpf (NONE SEEN); URINE HYALINE CAST 69 /lpf
--- NOTE | 2017-12-17 18:06 | CONSULT ---
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 Substance Abuse History: Confirmed by patient in this session.Smoking history: Current every day smoker. Have you smoked in the past 12 months: Yes. Aproximately how many cigarettes per day: 3. Hx Chewing Tobacco Use: No. Initiated information on smoking cessation: Yes. 'Breaking Loose' booklet given : 12/16/17. - Substance & Tx. History. Hx Alcohol Use: Yes. Hx Substance Use : Yes. Substance Use Type: Alcohol, Heroin. Hx Substance Use Treatment: Yes ( DETOX: 05/2017 ). - Substances Abused. Heroin. Route: Inhalation. Frequency: Daily. Amount used: 5-6 bags. Age of first use: 17. Date of Last Use: 12/16/17. Alcohol. Route: Oral. Frequency: Daily. Amount used: 1-2 pints vodka. Age of first use: 29. Date of Last Use: 12/16/17 Medical History: History of myocardial infarction,coronary artery disease, hypertension,hypercholesterolemia,herniated disk,lower back pain and arthritis. Psychiatric History: No reported history of psychiatric hospitalizations.Mr Chery sees his primary care physician for medications refills (trazodone 50 mg/hs for insomnia).Mr Chery denies history of suicide attempts. Physical/Sexual Abuse/Trauma History: Patient denies. Additional Comment: Urine Drug Screen Results: OPI-Opiates, BZO-Benzodiazepines , MTD-Methadone, OXY-Oxycodone.Noted. Mental Status Exam - Mental Status Exam Alert and Oriented to: Time, Place, Person Cognitive Function: Good Patient Appearance: Well Groomed Mood: Hopeful, Euthymic Affect: Appropriate, Normal Range Patient Behavior: Appropriate, Cooperative Speech Pattern: Clear, Appropriate Voice Loudness: Normal Thought Process: Intact, Goal Oriented Thought Disorder: Not Present Hallucinations: Denies Suicidal Ideation: Denies Homicidal Ideation: Denies Insight/Judgement: Poor Sleep: Poorly, Difficulty falling asleep Appetite: Good Muscle strength/Tone: Normal Gait/Station: Normal Psychiatric Findings - Problem List ([place] 1, 2,3) (1) Alcohol dependence with uncomplicated withdrawal Current Visit: Yes Status: Acute (2) Opioid dependence with withdrawal Current Visit: Yes Status: Acute (3) Nicotine dependence Current Visit: Yes Status: Acute Qualifiers: Nicotine product type: cigarettes Substance use status: uncomplicated Qualified Code(s): F17.210 - Nicotine dependence, cigarettes, uncomplicated (4) Insomnia Current Visit: Yes Status: Acute Qualifiers: Insomnia type: unspecified Qualified Code(s): G47.00 - Insomnia, unspecified - Initial Treatment Plan Initial Treatment Plan: Psychoeducation.Sleep hygiene.Detoxification in progress.Trazodone 50 mg po hs.Patient is informed of risk of priapism.No history of occurence of this adverse effect,as per self-report.Mr Chery agrees with careplan.Observation.
[2017-12-17] MEDS: ATORVASTATIN CA 80 MG TABLET (FP) PO SCH (22:39)
[2017-12-17] MEDS: traZODone HCL 50 MG TABLET (FP) PO SCH (22:39)
[2017-12-17] MEDS: THIAMINE HCL 100 MG TABLET (FP) PO SCH (22:39)
[2017-12-17] MEDS: NICOTINE POLACRILEX 2 MG GUM BC PRN (22:41)
[2017-12-18] MEDS: chlordiazePOXIDE HCL 25 MG CAPSULE PO SCH ×3 (06:21→18:07)
--- NOTE | 2017-12-18 11:13 | EKG ---
Test Reason : Blood Pressure : / mmHG Vent. Rate : 087 BPM Atrial Rate : 087 BPM P-R Int : 150 ms QRS Dur : 086 ms QT Int : 362 ms P-R-T Axes : 052 048 252 degrees QTc Int : 435 ms NORMAL SINUS RHYTHM POSSIBLE LEFT ATRIAL ENLARGEMENT LEFT VENTRICULAR HYPERTROPHY WITH REPOLARIZATION ABNORMALITY ABNORMAL ECG WHEN COMPARED WITH ECG OF 16-DEC-2017 20:28, NO SIGNIFICANT CHANGE WAS FOUND Confirmed by FRANCINE HARTMAN, OTF ([id number]) on 12/18/2017 11:12:52 AM Referred By: Confirmed By:OTF ESCAMILLA MD
[2017-12-18] MEDS: ASPIRIN 81 MG CHEWABLE TABLETS PO SCH (11:30)
[2017-12-18] MEDS: LISINOPRIL 5 MG TABLET (FP) PO SCH (11:30)
[2017-12-18] MEDS: PRENATAL VITAMINS W/ FOLIC ACID TABLET (FP) PO SCH (11:30)
[2017-12-18] MEDS: NICOTINE 14 MG/24 HOURS TOPICAL PATCH TD SCH (11:30)
[2017-12-18] MEDS: METHADONE HCL 5 MG TABLET (FOR DETOX USE ONLY) PO SCH (11:30)
--- NOTE | 2017-12-18 16:12 | PN ---
[facility] CIWA - CIWA Score Nausea/Vomitin-Mild Nausea/No Vomiting Muscle Tremors: 4-Moderate,w/Arms Extend Anxiety: 3 Agitation: 3 Paroxysmal Sweats: 1-Minimal Palms Moist Orientation: 0-Oriented Tacttile Disturbances: 1-Very Mild Itch/Numbness Auditory Disturbances: 0-None Visual Disturbances: 0-None Headache: 1-Very Mild CIWA-Ar Total Score: 14 [facility] COWS - Scale Resting Pulse: 1= [place] 81-100 Sweatin= Chills/Flushing Restless Observation: 1= Difficult to Sit Still Pupil Size: 0= Normal to Room Light Bone or Joint Aches: 1= Mild Discomfort Runny Nose/ Eye Tearin= Nasal Congestion GI Upset > 30mins: 2= Nausea/Diarrhea Tremor Observation of Outstretched Hands: 2= Slight Tremor Visible Yawning Observation: 2= >3x During Session Anxiety or Irritability: 2=Irritable/Anxious Goose Flesh Skin: 0=Smooth Skin COWS Score: 13 S Progress Note (SOAP) Subjective: joint aches GI distress sweat tremor muscle aches anxiety restlessness Objective: 12/18/17 16:11 Vital Signs Temperature 97.0 F L 12/18/17 14:42 Pulse Rate 68 12/18/17 14:42 Respiratory Rate 16 12/18/17 14:42 Blood Pressure 146/88 12/18/17 14:42 O2 Sat by Pulse Oximetry (%) Laboratory Last Values WBC 6.6 K/mm3 (4.0-10.0) 12/17/17 07:50 RBC 4.30 M/mm3 (4.00-5.60) 12/17/17 07:50 Hgb 11.8 GM/dL (11.7-16.9) 12/17/17 07:50 Hct 37.6 % (35.4-49) 12/17/17 07:50 MCV 87.4 fl (80-96) 12/17/17 07:50 MCH 27.4 pg (25.7-33.7) 12/17/17 07:50 MCHC 31.4 g/dl (32.0-35.9) L 12/17/17 07:50 RDW 13.2 % (11.9-15.9) 12/17/17 07:50 Plt Count 352 K/MM3 (134-434) 12/17/17 07:50 MPV 7.2 fl (7.5-11.1) L 12/17/17 07:50 Sodium 141 mmol/L (136-145) 12/17/17 07:50 Potassium 4.1 mmol/L (3.5-5.1) 12/17/17 07:50 Chloride 108 mmol/L (98-107) H 12/17/17 07:50 Carbon Dioxide 26 mmol/L (21-32) 12/17/17 07:50 Anion Gap 7 (8-16) L 12/17/17 07:50 BUN 17 mg/dL (7-18) D 12/17/17 07:50 Creatinine 1.0 mg/dL (0.7-1.3) 12/17/17 07:50 Creat Clearance w eGFR > 60 (>60) 12/17/17 07:50 Random Glucose 148 mg/dL (74-106) H 12/17/17 07:50 Calcium 7.7 mg/dL (8.5-10.1) L 12/17/17 07:50 Total Bilirubin 0.5 mg/dL (0.2-1.0) D 12/17/17 07:50 AST 15 U/L (15-37) 12/17/17 07:50 ALT 20 U/L (12-78) 12/17/17 07:50 Alkaline Phosphatase 77 U/L (45-117) 12/17/17 07:50 Total Protein 6.8 g/dl (6.4-8.2) 12/17/17 07:50 Albumin 3.4 g/dl (3.4-5.0) 12/17/17 07:50 Urine Color Yellow 12/17/17 08:30 Urine Appearance Turbid 12/17/17 08:30 Urine pH 5.0 (5.0-8.0) 12/17/17 08:30 Ur Specific [place] 1.034 (1.001-1.035) 12/17/17 08:30 Urine Protein 1+ (NEGATIVE) H 12/17/17 08:30 Urine Glucose (UA) Negative (NEGATIVE) 12/17/17 08:30 Urine Ketones Negative (NEGATIVE) 12/17/17 08:30 Urine Blood Negative (NEGATIVE) 12/17/17 08:30 Urine Nitrite Negative (NEGATIVE) 12/17/17 08:30 Urine Bilirubin Negative (NEGATIVE) 12/17/17 08:30 Urine Urobilinogen 2.0 mg/dL (0.2-1.0) 12/17/17 08:30 Ur Leukocyte Esterase Negative (NEGATIVE) 12/17/17 08:30 Urine WBC (Auto) None /hpf (3-5) 12/17/17 08:30 Urine RBC (Auto) None /hpf (0-3) 12/17/17 08:30 Calcium Oxalate Crystal Few /hpf (NONE SEEN) 12/17/17 08:30 Hyaline Casts 69 /lpf 12/17/17 08:30 RPR Titer Nonreactive (NONREACTIVE) 12/17/17 07:50 lab noted Assessment: 12/18/17 16:11 withdrawal sx Plan: continue detox
[2017-12-18] MEDS: chlordiazePOXIDE 5 MG CAPSULE PO SCH (23:08)
[2017-12-18] MEDS: ATORVASTATIN CA 80 MG TABLET (FP) PO SCH (23:08)
[2017-12-18] MEDS: THIAMINE HCL 100 MG TABLET (FP) PO SCH (23:08)
[2017-12-18] MEDS: traZODone HCL 50 MG TABLET (FP) PO SCH (23:10)
[2017-12-19] MEDS: chlordiazePOXIDE 5 MG CAPSULE PO SCH ×3 (05:46→17:28)
[2017-12-19] MEDS: PRENATAL VITAMINS W/ FOLIC ACID TABLET (FP) PO SCH (10:53)
[2017-12-19] MEDS: METHADONE HCL 5 MG TABLET (FOR DETOX USE ONLY) PO SCH (10:53)
[2017-12-19] MEDS: NICOTINE 14 MG/24 HOURS TOPICAL PATCH TD SCH (10:54)
[2017-12-19] MEDS: LISINOPRIL 5 MG TABLET (FP) PO SCH (10:54)
[2017-12-19] MEDS: ASPIRIN 81 MG CHEWABLE TABLETS PO SCH (10:55)
--- NOTE | 2017-12-19 11:06 | PN ---
[facility] Progress Note (SOAP) Subjective: ALERT,IRRITABLE,ANXIOUS,INTERRUPTED SLEEP,PAIN IN THE BODY Objective: 12/19/17 11:05 Vital Signs Temperature 97.7 F 12/19/17 06:00 Pulse Rate 78 12/19/17 06:00 Respiratory Rate 18 12/19/17 06:00 Blood Pressure 100/55 12/19/17 06:00 O2 Sat by Pulse Oximetry (%) Assessment: 12/19/17 11:05 WITHDRAWAL SYMPTOM Plan: CONTINUE DETOX
[2017-12-19] MEDS: THIAMINE HCL 100 MG TABLET (FP) PO SCH (22:33)
[2017-12-19] MEDS: ATORVASTATIN CA 80 MG TABLET (FP) PO SCH (22:33)
[2017-12-19] MEDS: traZODone HCL 50 MG TABLET (FP) PO SCH (22:33)
[2017-12-19] MEDS: chlordiazePOXIDE HCL 10 MG CAPSULE PO SCH (22:34)
[2017-12-20] MEDS: chlordiazePOXIDE HCL 10 MG CAPSULE PO SCH ×3 (05:32→17:39)
[2017-12-20] MEDS ORDERED: METHADONE HCL 10 MG TABLET (FOR DETOX USE ONLY) PO SCH (10:00)
--- NOTE | 2017-12-20 10:39 | PN ---
S Progress Note (SOAP) Subjective: ALERT,IRRITABLE,INTERRUPTED SLEEP Objective: 12/20/17 10:38 Vital Signs Temperature 97.7 F 12/20/17 10:23 Pulse Rate 80 12/20/17 10:23 Respiratory Rate 20 12/20/17 10:23 Blood Pressure 128/72 12/20/17 10:23 O2 Sat by Pulse Oximetry (%) Assessment: 12/20/17 10:39 WITHDRAWAL SYMPTOM Plan: CONTINUE DETOX,DISCHARGE IN AM
[2017-12-20] MEDS: PRENATAL VITAMINS W/ FOLIC ACID TABLET (FP) PO SCH (10:51)
[2017-12-20] MEDS: LISINOPRIL 5 MG TABLET (FP) PO SCH (10:51)
[2017-12-20] MEDS: NICOTINE 14 MG/24 HOURS TOPICAL PATCH TD SCH (10:51)
[2017-12-20] MEDS: ASPIRIN 81 MG CHEWABLE TABLETS PO SCH (10:51)
[2017-12-20] MEDS: ACETAMINOPHEN 325 MG TABLET (FP) PO PRN (12:53)
[2017-12-20] MEDS: NICOTINE POLACRILEX 2 MG GUM BC PRN (17:40)
[2017-12-20] MEDS: ATORVASTATIN CA 80 MG TABLET (FP) PO SCH (22:16)
[2017-12-20] MEDS: traZODone HCL 50 MG TABLET (FP) PO SCH (22:16)
[2017-12-20] MEDS: THIAMINE HCL 100 MG TABLET (FP) PO SCH (22:16)
[2017-12-21] MEDS ORDERED: METHADONE HCL 5 MG TABLET (FOR DETOX USE ONLY) PO SCH (06:00)
[2017-12-21 06:27] VITALS: PULSE 79
--- NOTE | 2017-12-21 08:33 | DS ---
[facility] Detox Discharge Summary Admission Date: 12/16/17 Discharge Date: 12/21/17 - History Present History: Alcohol Dependence, Opioid Dependence Additional Comments: FOLLOW UP WITH AFTER CARE PROGRAM ARRANGEMENT Pertinent Past History: HYPERTENSION HYPERCHOLESTEROLEMIA ARTHRITIS NICOTINE DEPENDENCE - Physical Exam Results Vital Signs: Vital Signs Temperature 96.1 F L 12/21/17 06:00 Pulse Rate 79 12/21/17 06:00 Respiratory Rate 18 12/21/17 06:00 Blood Pressure 129/85 12/21/17 06:00 O2 Sat by Pulse Oximetry (%) Pertinent Admission Physical Exam Findings: WITHDRAWAL SIGNS AND SYMPTOM - Treatment Hospital Course: Detox Protocol Followed, Detoxed Safely, Responded well, Discharged Condition Good Patient has Accepted a Rehab Referral to: DECLINED - Medication Discharge Medications: Ambulatory Orders Aspirin [ASA -] 81 mg PO DAILY 04/11/17 Atorvastatin Ca [Lipitor] 80 mg PO HS 04/11/17 Lisinopril 5 mg PO DAILY 04/11/17 traZODone HCL [Desyrel -] 50 mg PO HS #30 tablet 06/18/17 Naproxen [Naprosyn -] 500 mg PO BID 12/16/17 - Diagnosis (1) Opioid dependence with withdrawal Current Visit: Yes Status: Acute (2) Alcohol dependence with uncomplicated withdrawal Current Visit: Yes Status: Acute (3) Arthritis Current Visit: Yes Status: Chronic (4) Hyperlipidemia Current Visit: Yes Status: Chronic (5) Hypertension Current Visit: Yes Status: Chronic Qualifiers: Hypertension type: essential hypertension Qualified Code(s): I10 - Essential (primary) hypertension (6) Nicotine dependence Current Visit: Yes Status: Acute Qualifiers: Nicotine product type: cigarettes Substance use status: uncomplicated Qualified Code(s): F17.210 - Nicotine dependence, cigarettes, uncomplicated (7) Coronary artery disease Current Visit: No Status: Chronic Qualifiers: Coronary Disease-Associated Artery/Lesion type: unspecified vessel or lesion type [place] vs. transplanted heart: unspecified whether [place] or transplanted heart Associated angina: angina presence unspecified Qualified Code(s): I25.10 - Atherosclerotic heart disease of [place] coronary artery without angina pectoris (8) Low back pain Current Visit: No Status: Chronic (9) Old [place] (myocardial infarction) Current Visit: No Status: Chronic - AMA Did Patient Leave Against Medical Advice: No
[2017-12-21] MEDS: ASPIRIN 81 MG CHEWABLE TABLETS PO SCH (10:26)
[2017-12-21] MEDS: PRENATAL VITAMINS W/ FOLIC ACID TABLET (FP) PO SCH (10:26)
[2017-12-21] MEDS: ACETAMINOPHEN 325 MG TABLET (FP) PO PRN (10:26)
[2017-12-21 10:28] VITALS: BP 123/73; TEMP 98.1
== END 2017-12-21 10:32 | disposition home or self-care (01) | DRG 773 ==
LOC: YASAS 12:28 → Y6N 18:50
PROVIDERS: ADMIT Internal Medicine; ATTEND Internal Medicine
PROC: HZ2ZZZZ Detoxification Services for Substance Abuse Treatment (ICD-10-PCS; principal; 2017-12-16)
DX: F11.23 Opioid dependence with withdrawal (principal); F10.230 Alcohol dependence with withdrawal, uncomplicated; F17.210 Nicotine dependence, cigarettes, uncomplicated; F39 Unspecified mood [affective] disorder; G47.00 Insomnia, unspecified; I10 Essential (primary) hypertension; E78.00 Pure hypercholesterolemia, unspecified; M12.9 Arthropathy, unspecified; I25.2 Old myocardial infarction; I25.10 Atherosclerotic heart disease of native coronary artery without angina pectoris; M54.5 Low back pain; G89.29 Other chronic pain
CPT/HCPCS: 36415; 80053; 81003; 81015; 85027; 86593; 93005; 93010